=== PATIENT | female | born 1965 ===

== ENCOUNTER 2019-12-06 14:21 | Outpatient (REF) | payer MEDICAID, SELFPAY ==
--- NOTE | 2019-12-06 14:41 | XR_ITS ---
EXAMINATION: XR HIP, LEFT CLINICAL INFORMATION: Left hip pain. COMPARISON: None. TECHNIQUE: 2 views of the left hip. FINDINGS: Mild left hip arthritis, with borderline central joint space narrowing, superior acetabular spurring. No fracture or dislocation. No acute findings in the visualized pelvis. IMPRESSION: Mild left hip arthritis.
== END 2019-12-06 14:22 | disposition home or self-care (01) ==
LOC: HO.XRAY 14:21
PROVIDERS: PCP Pediatrics; Visit Provider Emergency Medicine
DX: M25.552 Pain in left hip (principal)
CPT/HCPCS: 73502

== ENCOUNTER 2020-03-06 14:40 | Outpatient (REF) | payer MEDICAID, SELFPAY ==
--- NOTE | 2020-03-06 14:44 | MM_ITS ---
EXAMINATION: BONE DENSITOMETRY CLINICAL INDICATION: Menopause. COMPARISON: Baseline BD dated 07/15/2016. TECHNIQUE: Using a [employer] DXA System (software version: 13.1) manufactured by [employer], dual-energy x-ray absorptiometry was performed of the lumbar spine and left hip. The images are of good technical quality. Summary results are attached. FINDINGS: AP SPINE L1-L4: Current: BMD 1.177 g/cm2, Z-score 0.0, T-score 0.0, normal, 2.6% increase from baseline (<5% change is not significant). Baseline: BMD 1.147 g/cm2. LEFT FEMUR, NECK: Current: BMD 0.971 g/cm2, Z-score 0.0, T-score -0.5, normal. Baseline: BMD 1.004 g/cm2. LEFT FEMUR, TOTAL: Current: BMD 1.107 g/cm2, Z-score 0.9, T-score 0.8, normal, 2.4% decrease from baseline (<5% change is not significant). Baseline: BMD 1.134 g/cm2. IDENTIFIED RISK FACTORS: Early menopause, secondary osteoporosis, hysterectomy. HISTORY OF FRACTURE: None listed. MEDICATIONS: None listed. MM/XR DEXA axial skeleton IMPRESSION: 1. DIAGNOSIS: Normal bone density based on the lowest T-score value of -0.5 in the femoral neck applying World Health Organization criteria. 2. 10-YEAR FRACTURE RISK PREDICTION, FRAX: Major osteoporotic fracture (clinical spine, forearm, hip or shoulder) 2.6%. Hip fracture 0.1%. 3. Treatment Recommendations: NOF guidelines recommend consideration for treatment in postmenopausal women and men age 50 and older presenting with the following: -A hip or vertebral (clinical or morphometric) fracture. -T-score less than or equal to -2.5 at the femoral neck or spine after appropriate evaluation to exclude secondary causes. -Low bone mass at the hip or spine and a 10-year fracture probability by FRAX of greater than or equal to 3% for hip fracture or greater than or equal to 20% for major osteoporotic fracture based on the [place] adapted WHO algorithm. 4. Other Recommendations: All treatment decisions require clinical judgment and consideration of individual patient factors, including patient preferences, comorbidities, previous drug use, risk factors not captured in the FRAX model (e.g. frailty, falls, vitamin D deficiency, increased bone turnover, interval significant decline in bone density) and possible under or overestimation of fracture risk by FRAX. FUTURE SCAN RECOMMENDATION: People with diagnosed cases of osteoporosis or at high risk for fracture should have regular bone mineral density tests. For patients eligible for Medicare, routine testing is allowed once every 2 years. The testing frequency can be increased to one year for patients who have rapidly progressing disease, those who are receiving or discontinuing medical therapy to restore bone mass, or have additional risk factors.
--- NOTE | 2020-03-06 14:45 | MM_ITS ---
EXAMINATION: MM SCREENING DIGITAL BREAST TOMOSYNTHESIS, BILATERAL CLINICAL INFORMATION: Screening. Asymptomatic. The lifetime risk of breast cancer based on the Tyrer-Cuzick Model is 6%. COMPARISON: Mammography: 07/12/2018, 06/30/2017, 01/18/2016 TECHNIQUE: Digital breast tomosynthesis is performed in both the craniocaudal and mediolateral oblique views along with computer-aided detection (CAD). Synthesized 2D images are generated from the tomosynthesis. FINDINGS: The breasts are almost entirely fatty (ACR BI-RADS breast composition Category a). There are no significant masses, abnormal calcifications, or other abnormalities. There are fine calcifications posterior outer right breast on CC view, related to vascular calcification on tomography. The axilla and skin contours are unremarkable. MM/MM tomosynthesis screening BI IMPRESSION: No mammographic evidence of malignancy. ASSESSMENT: BI-RADS 2: Benign RECOMMENDATION: Routine annual mammography screening. This patient's information was entered into a reminder system with a target due date for their next mammogram.
== END 2020-03-06 14:41 | disposition home or self-care (01) ==
LOC: HO.MAMMO 14:40
PROVIDERS: PCP Pediatrics; Visit Provider Pediatrics
DX: Z13.820 Encounter for screening for osteoporosis (principal); N95.1 Menopausal and female climacteric states; N95.0 Postmenopausal bleeding; Z90.710 Acquired absence of both cervix and uterus; Z12.31 Encounter for screening mammogram for malignant neoplasm of breast
CPT/HCPCS: 77063; 77067; 77080

== ENCOUNTER 2020-08-28 14:47 | Emergency (ER) | payer MEDICAID, SELFPAY ==
--- NOTE | ~2020-08-28 | US_ITS ---
EXAMINATION: US VENOUS WITH DOPPLER LOWER EXTREMITY, BILATERAL CLINICAL INFORMATION: Bilateral lower extremity pain with intermittent swelling. COMPARISON: None TECHNIQUE: Ultrasound of the deep veins is performed from the hip to the calf with compression sonography and color and pulse Doppler assessment. Spectral analysis with color-flow imaging is performed. FINDINGS: RIGHT: There is normal venous compression and respiratory variation and augmented flow. The visualized common femoral vein, superficial femoral vein, profunda femoral vein, popliteal vein, and the trifurcation region shows no evidence of deep venous thrombosis. There is no significant popliteal fossa cyst. LEFT: There is normal venous compression and respiratory variation and augmented flow. The visualized common femoral vein, superficial femoral vein, profunda femoral vein, popliteal vein, and the trifurcation region shows no evidence of deep venous thrombosis. There is no significant popliteal fossa cyst. If the patient's symptoms persist, follow up ultrasound in 5 days 7 days might be of value to exclude proximal propagation from a non-visualized calf vein. US/US venous duplex LE BI IMPRESSION: No DVT demonstrated in the right and left lower extremity.
[2020-08-28 15:50] VITALS: BP 129/85; PULSE 92; RESP 18; TEMP 36.8; O2SAT 97; BMI 31.4
[2020-08-28 18:04] VITALS: BP 144/83; PULSE 74; RESP 16; O2SAT 97
--- NOTE | 2020-08-28 18:22 | ED.LOWEXIN ---
HPI - Extremity Injury (Lower) General Chief Complaint: Extremity Injury, Lower Stated Complaint: terrible leg pains Time Seen by Provider: 08/28/20 19:38 Source: patient Mode of arrival: ambulatory Limitations: language barrier History of Present Illness HPI Narrative: 51-year-old female with past medical history diabetes, fibromyalgia, and hypertension presents with several months of bilateral lower extremity pain. States the pain is 10/10 and that she does have some intermittent swelling. She states the pain does not change went occurs at rest or on ambulation. She does not report falls, trauma or injury. MD complaint: other Onset (ago): month(s) Severity: severe Relieving factors: nothing Exacerbating factors: weight bearing, movement and palpation Other symptoms: none Related Data Allergies Allergy/AdvReac Type Severity Reaction Status Date / Time oxycodone [From PERCOCET] AdvReac Mild ANXIETY Verified 08/28/20 15:50 percocet AdvReac Mild anxiety Uncoded 08/28/20 15:50 Review of Systems Review of Systems: Constitutional: No Fever, No Chills ENT/Mouth: No Ear Pain, No Hoarseness, No sore throat Eyes: No Eye Pain, No Swelling, No Redness, No Foreign Body Cardiovascular: No Chest Pain, No SOB Respiratory: No Cough, No Dyspnea Gastrointestinal: No Nausea, No Vomiting, No Diarrhea, No abdominal Pain Genitourinary: No Dysuria, No Hematuria Musculoskeletal: positive Bilateral lower extremity pain, No Myalgias, No Joint Swelling Skin: No Skin lacerations, No rash Neuro: No Weakness, No Numbness, No Paresthesias, No Loss of Consciousness, No Dizziness, No Headache Psych: No Anxiety/Panic, No Depression Heme/Lymph: no easy bruising, no Lymphadenopathy Endocrine: No Polyuria, No Polydipsia Yes all other systems are reviewed and are negative [facility] Past Medical History Attestation statement: The following information was validated with the patient. Source: old records reviewed Medical History (Updated 08/28/20 @ 20:41 by Rachel Gallardo NP) Diabetes Fibromyalgia HTN (hypertension) Social History Social History Advance Directives: No Advance Directives Information Provided: No Patient : No Physical Exam Vital Signs: Vital Signs: Last Vital Signs Temp 98.2 F 08/28/20 15:50 Pulse 74 08/28/20 18:04 Resp 16 08/28/20 18:04 BP 144/83 H 08/28/20 18:04 Pulse Ox 97 08/28/20 18:04 Body Mass Index 31.4 Appearance: Alert. Oriented X3. No acute distress. Eyes: Pupils equal, round and reactive to light. ENT: Pharynx normal. Neck: Normal inspection. Neck supple. CVS: Normal heart rate and rhythm. Pulses normal. Respiratory: No respiratory distress. Breath sounds normal. Abdomen: Soft and nontender. Skin: Skin warm and dry. Normal skin color. Normal skin turgor. Extremities: No lower extremity edema. I do not appreciate any physical or palpable abnormalities to bilateral lower extremities. Neuro: No motor deficit. No sensory deficit. Course Course Course Narrative: 55-year-old female presents with bilateral lower extremity pain with intermittent swelling. At this time her legs are not swollen, I do not see any abnormalities, no bruising or wounds noted. Will order bilateral venous duplex. Duplex is negative. Plan of care is for patient to follow-up with primary care physician as she has had this pain for several months. Patient verbalized understanding of and agrees to plan of care discharge home. educational sign language interpreter utilized for all correspondence. Will translate utilized for discharge instructions. MDM - Extremity Injury (Lower) MDM Narrative Medical decision making narrative: DVT Medical Records Attestation: I reviewed the patient's medical records. Lab Data Attestation: I reviewed the patient's lab results. Labs: Lab Results 08/28/20 Range/Units 18:23 POC Glucose 227 H (60-115) mg/dL Imaging Data venous duplex: Attestation: I personally reviewed and interpreted this imaging study as follows: Radiologist's impression: EXAMINATION: US VENOUS WITH DOPPLER LOWER EXTREMITY, BILATERAL CLINICAL INFORMATION: Bilateral lower extremity pain with intermittent swelling. COMPARISON: None TECHNIQUE: Ultrasound of the deep veins is performed from the hip to the calf with compression sonography and color and pulse Doppler assessment. Spectral analysis with color-flow imaging is performed. FINDINGS: RIGHT: There is normal venous compression and respiratory variation and augmented flow. The visualized common femoral vein, superficial femoral vein, profunda femoral vein, popliteal vein, and the trifurcation region shows no evidence of deep venous thrombosis. There is no significant popliteal fossa cyst. LEFT: There is normal venous compression and respiratory variation and augmented flow. The visualized common femoral vein, superficial femoral vein, profunda femoral vein, popliteal vein, and the trifurcation region shows no evidence of deep venous thrombosis. There is no significant popliteal fossa cyst. If the patient's symptoms persist, follow up ultrasound in 5 days 7 days might be of value to exclude proximal propagation from a non-visualized calf vein. US/US venous duplex LE BI IMPRESSION: No DVT demonstrated in the right and left lower extremity. Discharge Plan Discharge Clinical Impression: Acute leg pain Qualifiers: Laterality: unspecified laterality Qualified Code(s): M79.606 - Pain in leg, unspecified Patient Disposition: Home, Self-Care Instructions: Arthralgia (ED), Leg Pain (ED) Additional Instructions: fue evaluado por dolor bilateral en las extremidades inferiores. El d?plex venoso es negativo para la formaci?n de co?gulos de pema en ambas piernas. Marleen un seguimiento con guardado m?dico de atenci?n primaria para realizar m?s estudios. Lawrence por elegir arianna departamento de emergencias para guardado evaluaci?n. Marleen un seguimiento con guardado m?dico de atenci?n primaria seg?n sea necesario. Regrese al departamento de emergencias por cualquier s?ntoma nuevo, preocupante o que empeore. you were evaluated for bilateral lower extremity pain. Venous duplex is negative for blood clots to both legs. Please follow-up with primary care physician for further workup. Thank you for choosing this emergency department for evaluation. Please follow-up with primary care physician as needed. Return to the emergency department for any new, concerning, or worsening symptoms. Interventions: ED Discharge Assessment Last Done: 08/28/20 21:39 Discharge Date/Time: 08/28/20 20:42
[2020-08-28 18:27] LABS: Glucose, Whole Blood 227 mg/dL (60-115)
== END 2020-08-28 20:42 | disposition home or self-care (01) ==
PROVIDERS: Emergency Provider Emergency Medicine; PCP Pediatrics
DX: M79.605 Pain in left leg (principal); M79.604 Pain in right leg; E11.9 Type 2 diabetes mellitus without complications; I10 Essential (primary) hypertension; M79.7 Fibromyalgia
CPT/HCPCS: 82947; 93970; 99284

== ENCOUNTER 2021-10-24 13:58 | Outpatient (REF) | payer MEDICAID, SELFPAY ==
--- NOTE | ~2021-10-24 | US_ITS ---
EXAMINATION: US ABDOMEN COMPLETE CLINICAL INFORMATION: Fatty liver. COMPARISON: CT Abdomen pelvis 11/14/2017. Ultrasound abdomen 03/09/2014. TECHNIQUE: Real-time imaging of the abdominal viscera. FINDINGS: PANCREAS: Pancreas is normal in size and contour. No pancreatic ductal distention or retroperitoneal effusion. ABDOMINAL AORTA: The proximal, mid, and distal segments are normal in caliber. INFERIOR VENA CAVA: Visualized portions are normal. LIVER: Liver is normal in size and smooth in contour. There is mild increased hepatic parenchymal echogenicity consistent with hepatic steatosis. No focal hepatic parenchymal lesion. No intrahepatic biliary ductal dilatation. GALLBLADDER: Surgically absent. COMMON BILE DUCT: Normal in caliber measuring 0.5 cm in diameter. RIGHT KIDNEY: Normal. No hydronephrosis. No renal calculi or focal parenchymal lesions. The kidney measures 12.4 cm in maximum dimension. There is incidental lobation contours similar to prior exams. LEFT KIDNEY: Normal. No hydronephrosis. No renal calculi or focal parenchymal lesions. The kidney measures 12.7 cm in maximum dimension. There is incidental lobation contours are similar to prior exams. SPLEEN: Normal. The spleen measures 10.7 cm in maximum dimension. FREE FLUID: None. US/US abdomen complete IMPRESSION: -Hepatic steatosis. No focal parenchymal lesion. -Spleen normal in size. No ascites. -Prior cholecystectomy.
== END 2021-10-24 13:59 | disposition home or self-care (01) ==
LOC: HO.HMGCX 13:58
PROVIDERS: PCP Family Medicine; Visit Provider Family Medicine
DX: K76.0 Fatty (change of) liver, not elsewhere classified (principal)
CPT/HCPCS: 76700

== ENCOUNTER 2022-03-06 17:22 | Emergency (ER) | payer MEDICAID, SELFPAY ==
--- NOTE | ~2022-03-06 | XR_ITS ---
EXAMINATION: XR CHEST CLINICAL INFORMATION: Chest pain and cough. COMPARISON: Chest radiograph 03/29/2019. TECHNIQUE: Frontal view of the chest was obtained. FINDINGS: Normal appearance of the cardiomediastinal silhouette. No focal airspace opacity, pleural effusion or pneumothorax. Mild interstitial prominence, not significantly changed since 2019. No acute osseous abnormalities. The visualized upper abdomen is within normal limits. XR/XR chest 1V IMPRESSION: No acute cardiopulmonary findings.
[2022-03-06 17:30] VITALS: BP 136/70; PULSE 93; O2SAT 98
--- NOTE | 2022-03-06 17:31 | ECG_ITS ---
Test Reason : CHEST DISCOMFORT Blood Pressure : / mmHG Vent. Rate : 074 BPM Atrial Rate : 074 BPM P-R Int : 140 ms QRS Dur : 082 ms QT Int : 416 ms P-R-T Axes : -01 004 010 degrees QTc Int : 461 ms Normal sinus rhythm Normal ECG When compared with ECG of 13-SEP-2017 19:16, Premature atrial complexes are no longer Present Referred By: Azul Irving Electronically Signed By:ZACH SAMPSON
[2022-03-06 17:33] VITALS: BP 142/80; PULSE 89; RESP 16; TEMP 36.9; O2SAT 97; BMI 28.3
--- NOTE | 2022-03-06 17:34 | ED.GENADULT ---
HPI - General Adult General Chief complaint: General Medical Stated complaint: SOB Time Seen by Provider: 03/06/22 17:26 Source: patient Mode of arrival: ambulatory Limitations: no limitations History of Present Illness HPI narrative: Patient comes to the emergency room complaining of shortness of breath, diarrhea, epigastric pain for 3 days. Patient states that she came to the emergency today because of the shortness of breath. Patient states that she has been coughing, having mild substernal pain with coughing. Patient has not taking any [id number] medication for diarrhea. Patient also feeling nauseous, no vomiting. Denies fever chills, no UTI symptoms. Related Data Previous Rx's Medication Instructions Recorded loperamide 2 mg capsule 2 mg PO Q4H PRN loose stool #10 03/06/22 caps Allergies Allergy/AdvReac Type Severity Reaction Status Date / Time oxycodone [From PERCOCET] AdvReac Mild ANXIETY Verified 08/28/20 15:50 percocet AdvReac Mild anxiety Uncoded 08/28/20 15:50 Review of Systems Review of Systems: Constitutional : No Weight loss, No Fever, No Chills, No Night Sweats, No Fatigue, No Malaise ENT/Mouth : No Hearing loss, No Ear Pain, No Nasal Congestion, No Sinus Pain, No Hoarseness, No sore throat, No Rhinorrhea, No Swallowing Difficulty Eyes: No Eye Pain, No Swelling, No Redness, No Foreign Body, No Discharge, No Vision Changes Cardiovascular : Complaining of substernal Chest Pain with coughing, No SOB, No Dyspnea on Exertion, No Orthopnea, No Edema, No Palpitations Respiratory : No Cough, No Sputum, No Wheezing, No Smoke Exposure, No Dyspnea Gastrointestinal : Complaining of Nausea, No Vomiting, complaining of Diarrhea, No Constipation, complaining of constant epigastric pain, No Hematochezia, No Melena Genitourinary : no irregular bleeding, No Dysuria, No Urinary Frequency, No Hematuria, No Urinary Incontinence, No Urgency, No Flank Pain, No Urinary Flow Changes, No Hesitancy Musculoskeletal : No joint pain, No Myalgias, No Joint Swelling Skin : No Skin Lesions, No rash Neuro : No Weakness, No Numbness, No Paresthesias, No Loss of Consciousness, No Dizziness, No Headache Psych : No Anxiety/Panic, No Depression, No SI/HI/AH/VH, No Social Issues, Heme/Lymph: No Bruising, No Bleeding,No Lymphadenopathy Endocrine : No Polyuria, No Polydipsia, No Temperature Intolerance [facility] Past Medical History Medical History Diabetes Fibromyalgia HTN (hypertension) Non Hodgkin's lymphoma Social History Social History Advance Directives: No Advance Directives Information Provided: No Physical Exam ED Vital Signs: Vital Signs - 24 hr 03/06/22 17:33 03/06/22 18:00 Temperature 98.4 F 98.7 F Pulse Rate 89 70 Respiratory Rate 16 16 Blood Pressure 142/80 H 135/77 Pulse Oximetry 97 98 Oxygen Delivery Method Room Air Room Air BMI result Body Mass Index 28.3 Const Other: Appearance: Alert. Oriented X3. No acute distress. Well-appearing Eyes: Pupils equal, round and reactive to light. ENT: Pharynx normal. Neck: Normal inspection. Neck supple. No lymph nodes noted. No crepitus CVS: Normal heart rate and rhythm. Pulses normal. Normal S1 and S2 Respiratory: No respiratory distress. Breath sounds normal. No Wheezing. No rales Abdomen: Soft, mild discomfort to palpation over the epigastrium. No rigidity. No distention. Skin: Skin warm and dry. Normal skin color. Normal skin turgor. Extremities: No lower extremity edema. No Lacerations. No Rash Neuro: Oriented X 3. No motor deficit. No sensory deficit. Moving all extremities. No slurred speech. CN 2 through 12 grossly intact Psych: calm, cooperative, normal affect Course Course Course Narrative: Patient complaining of shortness of breath, diarrhea, chest pain. Likely viral syndrome. However, patient has history of non-Hodgkin's lymphoma. D-dimer pending. Time, patient's vitals are normal, oxygen saturation 98% on room air, normal respiratory rate, heart rate in the 80s on physical exam. Medications Administered Discontinued Medications Generic Name Dose Route Start Last Admin Trade Name Freq PRN Reason Stop Dose Admin Sodium Chloride 1,000 mls @ 999 mls/hr 03/06/22 17:31 03/06/22 19:02 Ns IVCONT 03/06/22 18:31 999 mls/hr .Q1H1M ONE Administration Medical Decision Making Medical Decision Making MDM Narrative: I discussed the labs and imaging with the patient, no acute findings. D-dimer is negative. Patient does not have lower extremity swelling or pain. Troponin negative, EKG interpreted by me shows normal sinus rhythm, heart rate 74, no ST segment depression or elevation, nonspecific T-wave inversion in lead 3, QTC 461 Chest x-ray interpreted by me: No infiltrates, no pneumothorax I reviewed the radiology report: FINDINGS: Normal appearance of the cardiomediastinal silhouette. No focal airspace opacity, pleural effusion or pneumothorax. Mild interstitial prominence, not significantly changed since 2019. No acute osseous abnormalities. The visualized upper abdomen is within normal limits. XR/XR chest 1V IMPRESSION: No acute cardiopulmonary findings. Patient likely having a viral syndrome. Lab Data MDM Lab Attestation statement: I reviewed the patient's lab results. 03/06/22 18:06 03/06/22 18:06 Labs: Lab Results 03/06/22 03/06/22 03/06/22 Range/Units 18:06 18:06 18:06 WBC 6.3 (4.8-10.8) X10*3/uL RBC 6.17 H (4.20-5.50) X10*6/uL Hgb 14.2 (12.0-16.0) g/dl Hct 42.5 (37.0-47.0) % MCV 68.9 L (80.0-98.0) fL MCH 23.0 L (27.0-33.0) pg MCHC 33.4 (31.0-35.0) g/dl RDW 13.5 (11.0-16.0) % Plt Count 168 (160-400) X10*3/uL MPV 11.5 (9.4-12.3) fL Immature Gran % (Auto) 0.2 (0.0-0.4) % Neut % (Auto) 48.6 (45-73) % Lymph % (Auto) 40.6 H (20-40) % [place] % (Auto) 6.1 (2-11) % Eos % (Auto) 3.7 (0-4) % Baso % (Auto) 0.8 (0-2) % Lymph # (Auto) 2.5 (1.2-4.9) X10*3/uL [place] # (Auto) 0.4 (0.1-1.2) X10*3/uL Eos # (Auto) 0.2 (0.0-0.4) X10*3/uL Baso # (Auto) 0.1 (0.0-0.2) X10*3/uL Abs Immat Gran (auto) 0.01 (0.00-0.03) X10*3/uL Absolute Neuts (auto) 3.1 (2.0-8.3) x10*3/uL Absolute Nucleated RBC 0.000 (0.0-0.012) X10*3/uL Nucleated RBC % (auto) 0.0 (0.0-0.2) /100WBC PT (10.0-13.1) SEC INR (0.9-1.1) D-Dimer High Sensitivty NG/ML Sodium 135 (135-145) mmol/L Potassium 3.7 (3.3-5.1) mmol/L Chloride 103 (96-108) mmol/L Carbon Dioxide 19 L (22-29) mmol/L Anion Gap 17 (12-20) BUN 13 (9-16) mg/dL Creatinine 0.85 (0.5-1.4) mg/dL Estim Creat Clear Calc 73.2 Estimated GFR > 60 Random Glucose 278 H (60-115) mg/dL Calcium 9.6 (8.4-10.2) mg/dL Total Bilirubin 0.9 (0.0-1.0) mg/dL Direct Bilirubin 0.2 (0.0-0.5) mg/dL AST 58 H (5-31) U/L ALT 62 H (0-31) U/L Alkaline Phosphatase 142 H (39-117) U/L Troponin I High Sens (<3.5-17.0) ng/L Total Protein 7.6 (6.5-8.0) g/dL Albumin 4.0 (3.5-5.0) g/dL Lipase 52 (8-78) U/L COVID-19 (JENNY) (Negative) COVID-19 Clin Com Influenza Type A (TANJA) Negative (Negative) Influenza Type B (TANJA) Negative (Negative) Influenza A & B Note See Note 03/06/22 03/06/22 03/06/22 Range/Units 18:06 18:06 18:06 WBC (4.8-10.8) X10*3/uL RBC (4.20-5.50) X10*6/uL Hgb (12.0-16.0) g/dl Hct (37.0-47.0) % MCV (80.0-98.0) fL MCH (27.0-33.0) pg MCHC (31.0-35.0) g/dl RDW (11.0-16.0) % Plt Count (160-400) X10*3/uL MPV (9.4-12.3) fL Immature Gran % (Auto) (0.0-0.4) % Neut % (Auto) (45-73) % Lymph % (Auto) (20-40) % [place] % (Auto) (2-11) % Eos % (Auto) (0-4) % Baso % (Auto) (0-2) % Lymph # (Auto) (1.2-4.9) X10*3/uL [place] # (Auto) (0.1-1.2) X10*3/uL Eos # (Auto) (0.0-0.4) X10*3/uL Baso # (Auto) (0.0-0.2) X10*3/uL Abs Immat Gran (auto) (0.00-0.03) X10*3/uL Absolute Neuts (auto) (2.0-8.3) x10*3/uL Absolute Nucleated RBC (0.0-0.012) X10*3/uL Nucleated RBC % (auto) (0.0-0.2) /100WBC PT 13.0 (10.0-13.1) SEC INR 1.1 (0.9-1.1) D-Dimer High Sensitivty 152 NG/ML Sodium (135-145) mmol/L Potassium (3.3-5.1) mmol/L Chloride (96-108) mmol/L Carbon Dioxide (22-29) mmol/L Anion Gap (12-20) BUN (9-16) mg/dL Creatinine (0.5-1.4) mg/dL Estim Creat Clear Calc Estimated GFR Random Glucose (60-115) mg/dL Calcium (8.4-10.2) mg/dL Total Bilirubin (0.0-1.0) mg/dL Direct Bilirubin (0.0-0.5) mg/dL AST (5-31) U/L ALT (0-31) U/L Alkaline Phosphatase (39-117) U/L Troponin I High Sens < 3.5 (<3.5-17.0) ng/L Total Protein (6.5-8.0) g/dL Albumin (3.5-5.0) g/dL Lipase (8-78) U/L COVID-19 (JENNY) Negative (Negative) COVID-19 Clin Com See Note Influenza Type A (TANJA) (Negative) Influenza Type B (TANJA) (Negative) Influenza A & B Note Chronic Conditions Patient?s care impacted by: Other (Anxiety) Patient states that she has been feeling very anxious for the last few days. Unclear reason. Patient requesting 1 dose of Ativan prior to discharge Discharge Plan Discharge Clinical Impression: Acute viral syndrome, Diarrhea Patient Disposition: Home, Self-Care Instructions: Viral Syndrome (ED) Additional Instructions: Please follow-up with your primary care physician tomorrow. If you have any worsening or new symptoms, please return to the emergency room or call 911 Prescriptions: New loperamide 2 mg capsule 2 mg PO Q4H PRN (Reason: loose stool) Qty: 10 0RF Rx Instructions: administer after each loose stool until symptoms controlled; do not exceed 8 mg per 24 hrs
[2022-03-06 18:00] VITALS: BP 135/77; PULSE 70; RESP 16; TEMP 37.1; O2SAT 98
[2022-03-06 18:10] LABS: MANUAL DIFF FLAG NO
[2022-03-06 18:14] LABS: Basophils Absolute Auto 0.1 X10*3/uL (0.0-0.2); Basophils Percent Auto 0.8 % (0-2); Eosinophils Absolute Auto 0.2 X10*3/uL (0.0-0.4); Eosinophils Percent Auto 3.7 % (0-4); Hematocrit 42.5 % (37.0-47.0); Hemoglobin 14.2 g/dl (12.0-16.0); Imm Gran Abs Auto 0.01 X10*3/uL (0.00-0.03); Imm Gran Pct Auto 0.2 % (0.0-0.4); Lymphocytes Absolute Auto 2.5 X10*3/uL (1.2-4.9); Lymphocytes Percent Auto 40.6 % (20-40); Mean Corpuscular HGB Conc 33.4 g/dl (31.0-35.0); Mean Corpuscular Volume 68.9 fL (80.0-98.0); Mean Platelet Volume 11.5 fL (9.4-12.3); Monocytes Absolute Auto 0.4 X10*3/uL (0.1-1.2); Monocytes Percent Auto 6.1 % (2-11); Neutrophils Absolute Auto 3.1 x10*3/uL (2.0-8.3); Neutrophils Percent Auto 48.6 % (45-73); Platelet Count 168 X10*3/uL (160-400); Red Blood Count 6.17 X10*6/uL (4.20-5.50); Red Cell Distribution Width 13.5 % (11.0-16.0); White Blood Count 6.3 X10*3/uL (4.8-10.8)
[2022-03-06 18:19] LABS: INTERNATIONAL NORM RATIO 1.1 (0.9-1.1)
[2022-03-06 18:21] LABS: D Dimer High Sensitivity 152 NG/ML
[2022-03-06 18:25] LABS: COVID-19 Test Negative (Negative); IDNOW Serial# 16C4AD1C
[2022-03-06 18:28] LABS: IDNOW Serial# BCCEAD1C; Influenza A Negative (Negative); Influenza B2 Negative (Negative)
[2022-03-06 18:41] LABS: Alanine Aminotransferase 62 U/L (0-31); Alkaline Phosphatase 142 U/L (39-117); Anion Gap 17 (12-20); Aspartate Amino Transferase 58 U/L (5-31); Bilirubin Direct 0.2 mg/dL (0.0-0.5); Bilirubin Total 0.9 mg/dL (0.0-1.0); Blood Urea Nitrogen 13 mg/dL (9-16); Calcium 9.6 mg/dL (8.4-10.2); Carbon Dioxide 19 mmol/L (22-29); Chloride 103 mmol/L (96-108); Creatinine Clr Calc Pharmacy 73.2; Estimated Glomerular Filt Rate > 60; Glucose Random 278 mg/dL (60-115); Lipase 52 U/L (8-78); Potassium 3.7 mmol/L (3.3-5.1); Sodium 135 mmol/L (135-145); Total Protein 7.6 g/dL (6.5-8.0); Troponin-I High Sensitivity < 3.5 ng/L (<3.5-17.0)
[2022-03-06] MEDS: 0.9 % Sodium Chloride 1,000 ML 999 ML IVCONT (19:02)
[2022-03-06] MEDS: LORazepam 1 MG TABLET PO (19:49)
[2022-03-06] MEDS: Loperamide HCl 2 MG CAPSULE 4 MG PO (19:49)
[2022-03-06 20:28] VITALS: BP 130/76; PULSE 63; RESP 16; TEMP 36.3; O2SAT 98
== END 2022-03-06 20:36 | disposition home or self-care (01) ==
PROVIDERS: Emergency Provider Emergency Medicine; PCP Family Medicine
DX: B34.9 Viral infection, unspecified (principal); R06.02 Shortness of breath; R10.13 Epigastric pain; R19.7 Diarrhea, unspecified; Z79.899 Other long term (current) drug therapy; Z20.822 Contact with and (suspected) exposure to COVID-19
CPT/HCPCS: 71045; 80048; 80076; 83690; 84484; 85025; 85379; 85610; 87502; 87635; 93005; 99283; 99284

== ENCOUNTER 2022-03-11 12:53 | Outpatient (REF) | payer MEDICAID, SELFPAY ==
--- NOTE | ~2022-03-11 | MM_ITS ---
EXAMINATION: BONE DENSITOMETRY CLINICAL INDICATION: Post menopausal. COMPARISON: Previous BD dated 03/06/2020 and baseline BD dated 07/15/2016. TECHNIQUE: Using a Clarity DXA System (software version: 13.1) manufactured by [employer], dual-energy x-ray absorptiometry was performed of the lumbar spine and left hip. The images are of good technical quality. Summary results are attached. FINDINGS: AP SPINE L1-L4: Current: BMD 1.133 g/cm2, Z-score 0.1, T-score -0.4, normal, 3.7% decrease from previous, 1.2% decrease from baseline (<5% change is not significant). Prior: BMD 1.177 g/cm2. Baseline: BMD 1.147 g/cm2. LEFT FEMUR, NECK: Current: BMD 0.866 g/cm2, Z-score -0.4, T-score -1.2, osteopenia. Prior: BMD 0.971 g/cm2. Baseline: BMD 1.004 g/cm2. LEFT FEMUR, TOTAL: Current: BMD 1.017 g/cm2, Z-score 0.5, T-score 0.1, normal, 8.1% decrease from previous, 10.3% decrease from baseline (<5% change is not significant). Prior: BMD 1.107 g/cm2. Baseline: BMD 1.134 g/cm2. IDENTIFIED RISK FACTORS: Secondary osteoporosis (early menopause). Hysterectomy. HISTORY OF FRACTURE: None listed. MEDICATIONS: None listed. MM/XR DEXA axial skeleton IMPRESSION: 1. DIAGNOSIS: Osteopenia based on the lowest T-score value of -1.2 in the femoral neck applying World Health Organization criteria. 2. 10-YEAR FRACTURE RISK PREDICTION, FRAX: Major osteoporotic fracture (clinical spine, forearm, hip or shoulder) 3.4%. Hip fracture 0.2%. 3. Treatment Recommendations: NOF guidelines recommend consideration for treatment in postmenopausal women and men age 50 and older presenting with the following: -A hip or vertebral (clinical or morphometric) fracture. -T-score less than or equal to -2.5 at the femoral neck or spine after appropriate evaluation to exclude secondary causes. -Low bone mass at the hip or spine and a 10-year fracture probability by FRAX of greater than or equal to 3% for hip fracture or greater than or equal to 20% for major osteoporotic fracture based on the [place] adapted WHO algorithm. 4. Other Recommendations: All treatment decisions require clinical judgment and consideration of individual patient factors, including patient preferences, comorbidities, previous drug use, risk factors not captured in the FRAX model (e.g. frailty, falls, vitamin D deficiency, increased bone turnover, interval significant decline in bone density) and possible under or overestimation of fracture risk by FRAX. Additional medical evaluation for secondary cause of low bone mineral density may be appropriate. FUTURE SCAN RECOMMENDATION: People with diagnosed cases of osteoporosis or at high risk for fracture should have regular bone mineral density tests. For patients eligible for Medicare, routine testing is allowed once every 2 years. The testing frequency can be increased to one year for patients who have rapidly progressing disease, those who are receiving or discontinuing medical therapy to restore bone mass, or have additional risk factors.
--- NOTE | ~2022-03-11 | MM_ITS ---
EXAMINATION: MM SCREENING DIGITAL BREAST TOMOSYNTHESIS, BILATERAL CLINICAL INFORMATION: Screening. Asymptomatic. The lifetime risk of breast cancer based on the Tyrer-Cuzick Model is 4%. COMPARISON: Mammography: 03/06/2020, 07/12/2018, 07/19/2017 TECHNIQUE: Digital breast tomosynthesis is performed in both the craniocaudal and mediolateral oblique views along with computer-aided detection (CAD). Synthesized 2D images are generated from the tomosynthesis. FINDINGS: The breasts are almost entirely fatty (ACR BI-RADS breast composition Category a). Background stromal and fibroglandular densities are stable. No developing density or architectural abnormality. There are no significant masses, abnormal calcifications, or other abnormalities. The axilla and skin contours are unremarkable. MM/MM tomosynthesis screening BI IMPRESSION: No mammographic evidence of malignancy. ASSESSMENT: BI-RADS 1: Negative RECOMMENDATION: Routine annual mammography screening. This patient's information was entered into a reminder system with a target due date for their next mammogram.
== END 2022-03-11 12:54 | disposition home or self-care (01) ==
LOC: HO.MAMMO 12:53
PROVIDERS: PCP Pediatrics; Visit Provider Pediatrics
DX: Z12.31 Encounter for screening mammogram for malignant neoplasm of breast (principal); Z13.820 Encounter for screening for osteoporosis; Z78.0 Asymptomatic menopausal state
CPT/HCPCS: 77063; 77067; 77080

== ENCOUNTER 2022-08-27 16:22 | Emergency (ER) | payer MEDICAID, SELFPAY ==
--- NOTE | ~2022-08-27 | XR_ITS ---
EXAMINATION: XR CHEST CLINICAL INFORMATION: Chest pain, shortness of breath. COMPARISON: 03/06/2022 chest radiograph. TECHNIQUE: 2 views of the chest were obtained. FINDINGS: No significant abnormality is noted involving the heart, lungs, mediastinum, bony thorax or soft tissues. XR/XR chest 2V IMPRESSION: No acute cardiopulmonary process.
[2022-08-27 16:36] VITALS: BP 151/85; PULSE 79; RESP 18; TEMP 36.8; O2SAT 96; BMI 28.3
--- NOTE | 2022-08-27 16:36 | ED_ITS ---
HPI - Chest Pain General Chief Complaint: Chest Pain Stated Complaint: Chest pain/SOB/sent by Doc Time Seen by Provider: 08/27/22 18:14 Source: patient and family Mode of arrival: ambulatory History of Present Illness HPI narrative: 57-year-old female who reports intermittent chest tightness over the past 3 months not associated with fever, dizziness, headaches, shortness of breath, new cough for sore throat and denies any radiation. In addition, patient reports that this has happened several other times to her and that she does suffer from anxiety at baseline. Related Data Previous Rx's Medication Instructions Recorded loperamide 2 mg capsule 2 mg PO Q4H PRN loose stool #10 03/06/22 caps Allergies Allergy/AdvReac Type Severity Reaction Status Date / Time oxycodone [From PERCOCET] AdvReac Mild ANXIETY Verified 08/27/22 16:40 percocet AdvReac Mild anxiety Uncoded 08/28/20 15:50 Review of Systems Review of Systems: Pertinent positives and negatives as stated in HPI. [facility] Past Medical History Source: nursing notes reviewed Medical History Diabetes Fibromyalgia HTN (hypertension) Non Hodgkin's lymphoma Social History Social History Smoked in Last 30 Days: No Substance Use Type: Marijuana Advance Directives: No Advance Directives Information Provided: No Physical Exam Vital Signs: Vital Signs: Last Vital Signs Temp 98.6 F 08/27/22 18:30 Pulse 82 08/27/22 18:30 Resp 16 08/27/22 18:30 BP 127/76 08/27/22 18:30 Pulse Ox 97 08/27/22 18:30 O2 Del Method Room Air 08/27/22 18:30 BMI result Body Mass Index 28.3 VITAL SIGNS: Reviewed. GENERAL: Well developed, well nourished, in no acute distress. HEAD: Normocephalic/atraumatic EYES: PERRLA, EOMI EARS: Ext canals without abnormality NOSE: Nares patent bilateral OROPHARYNX: no oral lesions noted, posterior pharynx clear NECK: Supple, no adenopathy LUNGS: Normal breath sounds. No adventitious sounds or accessory muscle use. SpO2<97> CARDIOVASCULAR: Regular rate and rhythm without noted murmurs, no JVD or lower extremity edema. ABDOMEN: Soft, non-tender, non-distended with bowel sounds. MUSCULOSKELETAL: No tenderness, deformities, or effusions noted on gross inspection. EXTREMITIES: No cyanosis, clubbing or edema. SKIN: Inspection of the skin reveals no rashes NEUROLOGIC: Alert and oriented x 4. Strength and sensation to light touch were grossly intact x 4. Course Course Course Narrative: RME: 57-year-old female with past medical history of diabetes, fibromyalgia, HTN, non-Hodgkin's lymphoma in remission x5 yrs, presenting to ED substernal chest pressure & SOB that comes and goes x 3 days. Feels like she cant catch her breath EKG, Labs, CXR ordered Full HPI, ROS and PE to be performed by primary ED provider. Medical Decision Making Medical Decision Making [facility] Narrative: 57-year-old female with history and clinical presentation after review of all investigations there is no evidence to suggest a pneumonia or cardiac ischemia as there is no leukocytosis/left shift/elevated troponin/acute changes of EKG. I did review patient's medical history which does include non Hodgkin's lymphoma although patient does not describe any B symptoms and no findings on chest x-ray to suggest any association with this remote history. I discussed all results with patient at bedside and strongly recommended that she follow-up with her primary care provider for further evaluation and management as well as possible adjustment of her medications. She is otherwise stable for discharge. Differential Diagnosis Please see the discussion above Lab Data Please see the discussion above 08/27/22 17:34 08/27/22 17:29 Labs: Lab Results 08/27/22 08/27/22 08/27/22 Range/Units 17:29 17:29 17:29 WBC (4.8-10.8) X10*3/uL RBC (4.20-5.50) X10*6/uL Hgb (12.0-16.0) g/dl Hct (37.0-47.0) % MCV (80.0-98.0) fL MCH (27.0-33.0) pg MCHC (31.0-35.0) g/dl RDW (11.0-16.0) % Plt Count (160-400) X10*3/uL MPV (9.4-12.3) fL Immature Gran % (Auto) (0.0-0.4) % Neut % (Auto) (45-73) % Lymph % (Auto) (20-40) % [place] % (Auto) (2-11) % Eos % (Auto) (0-4) % Baso % (Auto) (0-2) % Lymph # (Auto) (1.2-4.9) X10*3/uL [place] # (Auto) (0.1-1.2) X10*3/uL Eos # (Auto) (0.0-0.4) X10*3/uL Baso # (Auto) (0.0-0.2) X10*3/uL Abs Immat Gran (auto) (0.00-0.03) X10*3/uL Absolute Neuts (auto) (2.0-8.3) x10*3/uL Absolute Nucleated RBC (0.0-0.012) X10*3/uL Nucleated RBC % (auto) (0.0-0.2) /100WBC PT 12.4 (10.0-13.1) SEC INR 1.1 (0.9-1.1) Sodium 134 L (135-145) mmol/L Potassium 3.8 (3.3-5.1) mmol/L Chloride 100 (96-108) mmol/L Carbon Dioxide 26 (22-29) mmol/L Anion Gap 12 (12-20) BUN 12 (9-16) mg/dL Creatinine 0.83 (0.5-1.4) mg/dL Estim Creat Clear Calc 75.0 Estimated GFR > 60 Random Glucose 229 H (60-115) mg/dL Calcium 10.4 H D (8.4-10.2) mg/dL Magnesium 2.1 (1.6-2.6) mg/dL Total Bilirubin 0.9 (0.0-1.0) mg/dL Direct Bilirubin 0.2 (0.0-0.5) mg/dL AST 50 H (5-31) U/L ALT 63 H (0-31) U/L Alkaline Phosphatase 129 H (39-117) U/L Troponin I High Sens < 2.7 (<3.5-17.0) ng/L B-Natriuretic Peptide (<100) pg/mL Total Protein 8.0 (6.5-8.0) g/dL Albumin 4.2 (3.5-5.0) g/dL COVID-19 (JENNY) (Negative) COVID-19 Clin Com 08/27/22 08/27/22 08/27/22 Range/Units 17:29 17:34 17:34 WBC 7.3 (4.8-10.8) X10*3/uL RBC 6.12 H (4.20-5.50) X10*6/uL Hgb 14.2 (12.0-16.0) g/dl Hct 42.8 (37.0-47.0) % MCV 69.9 L (80.0-98.0) fL MCH 23.2 L (27.0-33.0) pg MCHC 33.2 (31.0-35.0) g/dl RDW 14.6 (11.0-16.0) % Plt Count 191 (160-400) X10*3/uL MPV 11.4 (9.4-12.3) fL Immature Gran % (Auto) 0.3 (0.0-0.4) % Neut % (Auto) 57.0 (45-73) % Lymph % (Auto) 31.2 (20-40) % [place] % (Auto) 7.5 (2-11) % Eos % (Auto) 3.3 (0-4) % Baso % (Auto) 0.7 (0-2) % Lymph # (Auto) 2.3 (1.2-4.9) X10*3/uL [place] # (Auto) 0.6 (0.1-1.2) X10*3/uL Eos # (Auto) 0.2 (0.0-0.4) X10*3/uL Baso # (Auto) 0.1 (0.0-0.2) X10*3/uL Abs Immat Gran (auto) 0.02 (0.00-0.03) X10*3/uL Absolute Neuts (auto) 4.2 (2.0-8.3) x10*3/uL Absolute Nucleated RBC 0.000 (0.0-0.012) X10*3/uL Nucleated RBC % (auto) 0.0 (0.0-0.2) /100WBC PT (10.0-13.1) SEC INR (0.9-1.1) Sodium (135-145) mmol/L Potassium (3.3-5.1) mmol/L Chloride (96-108) mmol/L Carbon Dioxide (22-29) mmol/L Anion Gap (12-20) BUN (9-16) mg/dL Creatinine (0.5-1.4) mg/dL Estim Creat Clear Calc Estimated GFR Random Glucose (60-115) mg/dL Calcium (8.4-10.2) mg/dL Magnesium (1.6-2.6) mg/dL Total Bilirubin (0.0-1.0) mg/dL Direct Bilirubin (0.0-0.5) mg/dL AST (5-31) U/L ALT (0-31) U/L Alkaline Phosphatase (39-117) U/L Troponin I High Sens (<3.5-17.0) ng/L B-Natriuretic Peptide < 10 (<100) pg/mL Total Protein (6.5-8.0) g/dL Albumin (3.5-5.0) g/dL COVID-19 (JENNY) Negative (Negative) COVID-19 Clin Com See Note Independent Interpretation I performed an independent interpretation of an: EKG Interpretation: Normal sinus rhythm, HR-80, no STEMI, CO/QRS/QTC are within normal limits, there are no acute changes when compared to prior from 03/06/2022 Radiology Impression Radiologist Impression: There is no pneumonia otherwise my interpretation is in agreement with radiologist impression. External Record Review External record reviewed: Prior outpatient labs Chronic Conditions Patient?s care impacted by: Diabetes and Hypertension Discharge Plan Discharge Clinical Impression: Atypical chest pain, Anxiety Patient Disposition: Home, Self-Care Instructions: Chest Pain (ED), Anxiety (ED) Additional Instructions: 1. Reanudar todos los medicamentos caseros seg?n lo prescrito. 2. Le recomendamos encarecidamente que lara un seguimiento con guardado proveedor de atenci?n primaria y analice el ajuste de debbie medicamentos para guardado ansiedad. Regrese a la fariha de emergencias si los s?ntomas empeoran. 1. Resume all home medications as prescribed. 2. Strongly recommend that you follow-up with your primary care provider and discuss adjustment of your medications for your anxiety. Return to the ER for any worsening symptoms. Prescriptions: No Action loperamide 2 mg capsule 2 mg PO Q4H PRN (Reason: loose stool) Qty: 10 0RF Rx Instructions: administer after each loose stool until symptoms controlled; do not exceed 8 mg per 24 hrs Referrals: Keyona Chaudhari MD [Primary Care Provider] - Print Language: Greek
--- NOTE | 2022-08-27 16:39 | ECG_ITS ---
Test Reason : chest tightness Blood Pressure : / mmHG Vent. Rate : 080 BPM Atrial Rate : 080 BPM P-R Int : 134 ms QRS Dur : 084 ms QT Int : 402 ms P-R-T Axes : -02 029 004 degrees QTc Int : 463 ms Normal sinus rhythm Normal ECG When compared with ECG of 06-MAR-2022 18:11, No significant change was found Referred By: Jie Naik Electronically Signed By:Go Rose
--- NOTE | 2022-08-27 17:37 | MHC.EDTECH ---
PATIENT LABS DRAWN ,COVID SWAB COLLECTED AND SENT TO LAB .
[2022-08-27 17:45] LABS: MANUAL DIFF FLAG NO
[2022-08-27 17:46] LABS: Basophils Absolute Auto 0.1 X10*3/uL (0.0-0.2); Basophils Percent Auto 0.7 % (0-2); Eosinophils Absolute Auto 0.2 X10*3/uL (0.0-0.4); Eosinophils Percent Auto 3.3 % (0-4); Hematocrit 42.8 % (37.0-47.0); Hemoglobin 14.2 g/dl (12.0-16.0); Imm Gran Abs Auto 0.02 X10*3/uL (0.00-0.03); Imm Gran Pct Auto 0.3 % (0.0-0.4); Lymphocytes Absolute Auto 2.3 X10*3/uL (1.2-4.9); Lymphocytes Percent Auto 31.2 % (20-40); Mean Corpuscular HGB Conc 33.2 g/dl (31.0-35.0); Mean Corpuscular Hemoglobin 23.2 pg (27.0-33.0); Mean Corpuscular Volume 69.9 fL (80.0-98.0); Mean Platelet Volume 11.4 fL (9.4-12.3); Monocytes Absolute Auto 0.6 X10*3/uL (0.1-1.2); Monocytes Percent Auto 7.5 % (2-11); Neutrophils Absolute Auto 4.2 x10*3/uL (2.0-8.3); Platelet Count 191 X10*3/uL (160-400); Red Blood Count 6.12 X10*6/uL (4.20-5.50); Red Cell Distribution Width 14.6 % (11.0-16.0); White Blood Count 7.3 X10*3/uL (4.8-10.8)
[2022-08-27 18:00] LABS: INTERNATIONAL NORM RATIO 1.1 (0.9-1.1); Prothrombin Time 12.4 SEC (10.0-13.1)
[2022-08-27 18:02] LABS: Alanine Aminotransferase 63 U/L (0-31); Albumin Level 4.2 g/dL (3.5-5.0); Alkaline Phosphatase 129 U/L (39-117); Anion Gap 12 (12-20); Aspartate Amino Transferase 50 U/L (5-31); Bilirubin Direct 0.2 mg/dL (0.0-0.5); Bilirubin Total 0.9 mg/dL (0.0-1.0); Blood Urea Nitrogen 12 mg/dL (9-16); COVID-19 Test Negative (Negative); Calcium 10.4 mg/dL (8.4-10.2); Carbon Dioxide 26 mmol/L (22-29); Chloride 100 mmol/L (96-108); Estimated Glomerular Filt Rate > 60; Glucose Random 229 mg/dL (60-115); IDNOW Serial# 6674DD1D; Magnesium 2.1 mg/dL (1.6-2.6); Potassium 3.8 mmol/L (3.3-5.1); Sodium 134 mmol/L (135-145)
[2022-08-27 18:07] LABS: B Type Natriuretic Peptide < 10 pg/mL (<100)
[2022-08-27 18:10] LABS: Troponin-I High Sensitivity < 2.7 ng/L (<3.5-17.0)
[2022-08-27 18:30] VITALS: BP 127/76; PULSE 82; RESP 16; TEMP 37; O2SAT 97
[2022-08-27 19:52] VITALS: BP 128/76; PULSE 78; RESP 15; TEMP 36.6; O2SAT 97
== END 2022-08-27 20:21 | disposition home or self-care (01) ==
PROVIDERS: Physician Assistant; Emergency Provider Student in an Organized Health Care Education/Training Program; PCP Pediatrics
DX: R07.89 Other chest pain (principal); F41.9 Anxiety disorder, unspecified; R05.9 Cough, unspecified; E11.9 Type 2 diabetes mellitus without complications; C85.90 Non-Hodgkin lymphoma, unspecified, unspecified site; Z20.822 Contact with and (suspected) exposure to COVID-19
CPT/HCPCS: 36415; 71046; 80048; 80076; 83735; 83880; 84484; 85025; 85610; 87635; 93005; 99283; 99285

== ENCOUNTER 2022-09-12 18:06 | Outpatient (REF) | payer MEDICAID, SELFPAY | END 2022-09-12 18:07 | disposition home or self-care (01) | LOC: HO.HHCLNP 18:06 | PROVIDERS: Visit Provider Emergency Medicine | DX: R07.0 Pain in throat (principal) | CPT/HCPCS: 87070; 87147 ==

== ENCOUNTER 2022-09-14 19:02 | Emergency (ER) | payer MEDICAID, SELFPAY ==
--- NOTE | ~2022-09-14 | XR_ITS ---
EXAMINATION: XR SOFT TISSUE NECK CLINICAL INDICATION: Sore throat COMPARISON: None available. TECHNIQUE: 2 views of the soft tissue neck were obtained. FINDINGS: There is a slightly thickened appearance of the upper prevertebral soft tissues which may be indicative of inflammation/pharyngitis. Airway appears preserved. Lung apices are well-aerated. Mild degenerative changes noted throughout the cervical spine. XR/XR soft tissue neck IMPRESSION: Slightly thickened appearance of the upper prevertebral soft tissues which may be indicative of inflammation/pharyngitis.
[2022-09-14 19:41] VITALS: BP 144/79; PULSE 73; RESP 18; TEMP 36; O2SAT 99; BMI 27.8
--- NOTE | 2022-09-14 19:44 | ED.EAR ---
HPI - Ear Problem General Chief complaint: General Medical Stated complaint: Ear and throat pain Time Seen by Provider: 09/14/22 21:53 Source: patient and spanish interpreter Mode of arrival: ambulatory Limitations: no limitations History of Present Illness HPI Narrative: 57yoF with a PMHx of lymphoma was diagnosed in 2005 had chemotherapy until 2006 has been in remission since then was presenting to the ER with complaints of left-sided neck pain that is radiating to her left ear for the past 8 days. Reports that she has been to her PCP and urgent cares and they continue to obtain strep and COVID swabs and they continue to be negative although patient continues to have this pain. She denies any fevers, chills, trouble swallowing or breathing, chest pain or shortness of breath, rashes, recent falls, others with similar symptoms or any other symptoms complaints or concerns at this time. Related Data Previous Rx's Medication Instructions Recorded loperamide 2 mg capsule 2 mg PO Q4H PRN loose stool #10 03/06/22 caps amoxicillin 500 mg tablet 500 mg PO BID #14 tabs 09/14/22 Allergies Allergy/AdvReac Type Severity Reaction Status Date / Time oxycodone [From PERCOCET] AdvReac Mild ANXIETY Verified 09/14/22 19:41 percocet AdvReac Mild anxiety Uncoded 08/28/20 15:50 Review of Systems Review of Systems: All other systems are reviewed and are negative Constitutional: Reports as per HPI and Reports no additional constitutional complaints Eyes: Reports as per HPI and Reports no additional eye complaints Reports system reviewed and no additional complaints, except as documented Cardiovascular: Reports as per HPI and Reports no additional cardiovascular complaints Respiratory: Reports as per HPI and Reports no additional respiratory complaints Gastrointestinal: Reports as per HPI and Reports no additional gastrointestinal complaints Genitourinary: Reports no additional female genitourinary complaints Musculoskeletal: Reports no additional musculoskeletal complaints Skin/Breast: Reports system reviewed and no additional complaints, except as docu Psychiatric: Reports no additional psychiatric complaints Endocrine: Reports no additional endocrine complaints Hematologic/Lymphatic: Reports no additional hematologic/lymphatic complaints Allergic/Immunologic: Reports no additional allergic/immunologic complaints Reports system reviewed and no additional complaints, except as documented and Reports Abnormal speech present PMFSH Past Medical History Medical History Diabetes Fibromyalgia HTN (hypertension) Non Hodgkin's lymphoma Social History Social History Alcohol intake: never Smoked in Last 30 Days: No Use of substances other than those prescribed or required for medical reasons: No Substance Use Type: Marijuana Advance Directives: No Advance Directives Information Provided: No Physical Exam Vital Signs: Vital Signs: Last Vital Signs Temp 99.1 F 09/14/22 21:55 Pulse 77 09/14/22 21:55 Resp 18 09/14/22 21:55 BP 166/79 H 09/14/22 21:55 Pulse Ox 97 09/14/22 21:55 O2 Del Method Room Air 09/14/22 21:55 BMI result Body Mass Index 27.8 Vital signs have been reviewed as appeared to be correct. Blood pressure normal. Heart rate normal. Respiration rate normal. Temperature normal. Oxygen saturation normal. Appearance: Alert. Oriented X3. No acute distress. Head: Normal external exam. Normocephalic. Atraumatic. No Mclaughlin signs noted. No raccoon eyes noted Eyes: PERRLA. EOMI. Conjunctiva and sclera normal. Eyelids normal. ENT: TM's Normal. Pharynx normal. Uvula midline. Moist mucous membranes. No trismus noted. No drooling noted. No muffled voice noted. Neck: Normal inspection. Neck supple. FROM. No adenopathy. Thyroid Normal. No meningeal signs. No neck mass noted. CVS: Normal heart rate and rhythm. Heart sound normal. No murmurs noted. Pulses normal throughout. Respiratory: No respiratory distress. Painless inspiration. Breath sounds normal. No wheezes/rales/rhonchi noted. Chest nontender. No accessory muscle usage noted or decreased air movement noted. Abdomen: Soft and nontender. Bowel sounds normal in all 4 quadrants. No distention noted. No organomegaly noted. No visible injury noted. Back: No CVA tenderness. Full range of motion noted. Skin: Skin warm and dry. Normal skin color. Normal skin turgor. No rashes/lesions/lacerations noted. Extremities: No lower extremity edema. Extremities exhibit normal range of motion. Extremities nontender. Neuro: Oriented X 3. Cranial nerve exam: II-XII are grossly intact No motor deficit. No sensory deficit. Reflexes normal. Course Course Course Narrative: RME- 19:50pm - 57yoF with a PMHx of lymphoma was diagnosed in 2005 had chemotherapy until 2006 has been in remission since then was presenting to the ER with complaints of left-sided neck pain that is radiating to her left ear for the past 8 days. Reports that she has been to her PCP and urgent cares and they continue to obtain strep and COVID swabs and they continue to be negative although patient continues to have this pain. She denies any fevers, chills, trouble swallowing or breathing, chest pain or shortness of breath, rashes, recent falls, others with similar symptoms or any other symptoms complaints or concerns at this time. Plan: Labs, CT scan of soft tissue neck, rapid strep, COVID/RSV/flu swab. Patient will be sent back to the waiting room to be evaluated in the ED. Reevaluation(s) Reevaluation #1: Eight days of left ear pain and left-sided throat pain, patient had multiple negative throat swab for strep infection, will start the patient on short course of amoxicillin for a subtle infection. Time: 23:15 Medications Administered Discontinued Medications Generic Name Dose Route Start Last Admin Trade Name Freq PRN Reason Stop Dose Admin Ibuprofen 600 mg 09/14/22 22:04 09/14/22 22:34 Ibuprofen 600 Mg Tablet PO 09/14/22 22:05 600 mg ONCE ONE Administration Medical Decision Making Differential Diagnosis Differential Diagnoses: The differential diagnosis associated with the presentation includes (Pharyngitis, otitis media,, fibromyalgia, electrolyte abnormalities, severe anemia.) Admission/Observation Consideration of admission/observation: Escalation of care including admission/observation considered Lab Data MDM Lab Attestation statement: I reviewed the patient's lab results. 09/14/22 20:08 09/14/22 20:08 Labs: Lab Results 09/14/22 09/14/22 09/14/22 Range/Units 20:08 20:08 20:08 WBC 10.0 (4.8-10.8) X10*3/uL RBC 5.07 (4.20-5.50) X10*6/uL Hgb 11.8 L (12.0-16.0) g/dl Hct 36.1 L (37.0-47.0) % MCV 71.2 L (80.0-98.0) fL MCH 23.3 L (27.0-33.0) pg MCHC 32.7 (31.0-35.0) g/dl RDW 14.1 (11.0-16.0) % Plt Count 276 D (160-400) X10*3/uL MPV 10.1 (9.4-12.3) fL Immature Gran % (Auto) 0.3 (0.0-0.4) % Neut % (Auto) 60.7 (45-73) % Lymph % (Auto) 29.7 (20-40) % Independence % (Auto) 6.5 (2-11) % Eos % (Auto) 2.5 (0-4) % Baso % (Auto) 0.3 (0-2) % Lymph # (Auto) 3.0 (1.2-4.9) X10*3/uL Independence # (Auto) 0.7 (0.1-1.2) X10*3/uL Eos # (Auto) 0.3 (0.0-0.4) X10*3/uL Baso # (Auto) 0.0 (0.0-0.2) X10*3/uL Abs Immat Gran (auto) 0.03 (0.00-0.03) X10*3/uL Absolute Neuts (auto) 6.1 (2.0-8.3) x10*3/uL Absolute Nucleated RBC 0.000 (0.0-0.012) X10*3/uL Nucleated RBC % (auto) 0.0 (0.0-0.2) /100WBC ESR 51 H (0-20) MM/HR PT 12.7 (10.0-13.1) SEC INR 1.1 (0.9-1.1) Sodium (135-145) mmol/L Potassium (3.3-5.1) mmol/L Chloride (96-108) mmol/L Carbon Dioxide (22-29) mmol/L Anion Gap (12-20) BUN (9-16) mg/dL Creatinine (0.5-1.4) mg/dL Estim Creat Clear Calc Estimated GFR Random Glucose (60-115) mg/dL Calcium (8.4-10.2) mg/dL Magnesium (1.6-2.6) mg/dL Total Bilirubin (0.0-1.0) mg/dL Direct Bilirubin (0.0-0.5) mg/dL AST (5-31) U/L ALT (0-31) U/L Alkaline Phosphatase (39-117) U/L C-Reactive Protein (< or = 0.50) mg/dL Total Protein (6.5-8.0) g/dL Albumin (3.5-5.0) g/dL Lipase (8-78) U/L TSH (0.32-4.0) uIU/mL Monoscreen (Negative) Influenza Type A (PCR) (Negative) Influenza Type B (PCR) (Negative) RSV RNA Qual (PCR) (Negative) SARS-CoV-2 RNA (RT-PCR) (Negative) S. pyogenes GrpA TANJA (Negative) 09/14/22 09/14/22 09/14/22 Range/Units 20:08 20:08 20:08 WBC (4.8-10.8) X10*3/uL RBC (4.20-5.50) X10*6/uL Hgb (12.0-16.0) g/dl Hct (37.0-47.0) % MCV (80.0-98.0) fL MCH (27.0-33.0) pg MCHC (31.0-35.0) g/dl RDW (11.0-16.0) % Plt Count (160-400) X10*3/uL MPV (9.4-12.3) fL Immature Gran % (Auto) (0.0-0.4) % Neut % (Auto) (45-73) % Lymph % (Auto) (20-40) % Independence % (Auto) (2-11) % Eos % (Auto) (0-4) % Baso % (Auto) (0-2) % Lymph # (Auto) (1.2-4.9) X10*3/uL Independence # (Auto) (0.1-1.2) X10*3/uL Eos # (Auto) (0.0-0.4) X10*3/uL Baso # (Auto) (0.0-0.2) X10*3/uL Abs Immat Gran (auto) (0.00-0.03) X10*3/uL Absolute Neuts (auto) (2.0-8.3) x10*3/uL Absolute Nucleated RBC (0.0-0.012) X10*3/uL Nucleated RBC % (auto) (0.0-0.2) /100WBC ESR (0-20) MM/HR PT (10.0-13.1) SEC INR (0.9-1.1) Sodium 140 (135-145) mmol/L Potassium 3.6 (3.3-5.1) mmol/L Chloride 104 (96-108) mmol/L Carbon Dioxide 27 (22-29) mmol/L Anion Gap 13 (12-20) BUN 9 (9-16) mg/dL Creatinine 0.76 (0.5-1.4) mg/dL Estim Creat Clear Calc 81.2 Estimated GFR > 60 Random Glucose 121 H (60-115) mg/dL Calcium 10.3 H (8.4-10.2) mg/dL Magnesium 2.4 (1.6-2.6) mg/dL Total Bilirubin 0.5 (0.0-1.0) mg/dL Direct Bilirubin 0.2 (0.0-0.5) mg/dL AST 19 (5-31) U/L ALT 15 (0-31) U/L Alkaline Phosphatase 110 (39-117) U/L C-Reactive Protein 3.32 H (< or = 0.50) mg/dL Total Protein 7.6 (6.5-8.0) g/dL Albumin 3.9 (3.5-5.0) g/dL Lipase 39 (8-78) U/L TSH 0.64 (0.32-4.0) uIU/mL Monoscreen Negative (Negative) Influenza Type A (PCR) (Negative) Influenza Type B (PCR) (Negative) RSV RNA Qual (PCR) (Negative) SARS-CoV-2 RNA (RT-PCR) (Negative) S. pyogenes GrpA TANJA Negative (Negative) 09/14/22 Range/Units 20:08 WBC (4.8-10.8) X10*3/uL RBC (4.20-5.50) X10*6/uL Hgb (12.0-16.0) g/dl Hct (37.0-47.0) % MCV (80.0-98.0) fL MCH (27.0-33.0) pg MCHC (31.0-35.0) g/dl RDW (11.0-16.0) % Plt Count (160-400) X10*3/uL MPV (9.4-12.3) fL Immature Gran % (Auto) (0.0-0.4) % Neut % (Auto) (45-73) % Lymph % (Auto) (20-40) % Independence % (Auto) (2-11) % Eos % (Auto) (0-4) % Baso % (Auto) (0-2) % Lymph # (Auto) (1.2-4.9) X10*3/uL Independence # (Auto) (0.1-1.2) X10*3/uL Eos # (Auto) (0.0-0.4) X10*3/uL Baso # (Auto) (0.0-0.2) X10*3/uL Abs Immat Gran (auto) (0.00-0.03) X10*3/uL Absolute Neuts (auto) (2.0-8.3) x10*3/uL Absolute Nucleated RBC (0.0-0.012) X10*3/uL Nucleated RBC % (auto) (0.0-0.2) /100WBC ESR (0-20) MM/HR PT (10.0-13.1) SEC INR (0.9-1.1) Sodium (135-145) mmol/L Potassium (3.3-5.1) mmol/L Chloride (96-108) mmol/L Carbon Dioxide (22-29) mmol/L Anion Gap (12-20) BUN (9-16) mg/dL Creatinine (0.5-1.4) mg/dL Estim Creat Clear Calc Estimated GFR Random Glucose (60-115) mg/dL Calcium (8.4-10.2) mg/dL Magnesium (1.6-2.6) mg/dL Total Bilirubin (0.0-1.0) mg/dL Direct Bilirubin (0.0-0.5) mg/dL AST (5-31) U/L ALT (0-31) U/L Alkaline Phosphatase (39-117) U/L C-Reactive Protein (< or = 0.50) mg/dL Total Protein (6.5-8.0) g/dL Albumin (3.5-5.0) g/dL Lipase (8-78) U/L TSH (0.32-4.0) uIU/mL Monoscreen (Negative) Influenza Type A (PCR) NEGATIVE (Negative) Influenza Type B (PCR) NEGATIVE (Negative) RSV RNA Qual (PCR) NEGATIVE (Negative) SARS-CoV-2 RNA (RT-PCR) NEGATIVE (Negative) S. pyogenes GrpA TANJA (Negative) Independent Interpretation I performed an independent interpretation of an: Plain X-Ray (Soft tissue neck: No acute soft tissue pathology.) Radiology Impression Discussion of test interpretation with radiology: I have reviewed the radiologist's reading. Discharge Plan Discharge Clinical Impression: Pharyngitis Patient Disposition: Home, Self-Care Instructions: Pharyngitis (ED) Prescriptions: New amoxicillin 500 mg tablet 500 mg PO BID Qty: 14 0RF No Action loperamide 2 mg capsule 2 mg PO Q4H PRN (Reason: loose stool) Qty: 10 0RF Rx Instructions: administer after each loose stool until symptoms controlled; do not exceed 8 mg per 24 hrs Referrals: Keyona Chaudhari MD [Primary Care Provider] -
[2022-09-14 20:15] LABS: MANUAL DIFF FLAG NO
[2022-09-14 20:17] LABS: Basophils Percent Auto 0.3 % (0-2); Eosinophils Absolute Auto 0.3 X10*3/uL (0.0-0.4); Eosinophils Percent Auto 2.5 % (0-4); Hematocrit 36.1 % (37.0-47.0); Hemoglobin 11.8 g/dl (12.0-16.0); Imm Gran Abs Auto 0.03 X10*3/uL (0.00-0.03); Imm Gran Pct Auto 0.3 % (0.0-0.4); Lymphocytes Percent Auto 29.7 % (20-40); Mean Corpuscular HGB Conc 32.7 g/dl (31.0-35.0); Mean Corpuscular Hemoglobin 23.3 pg (27.0-33.0); Mean Corpuscular Volume 71.2 fL (80.0-98.0); Mean Platelet Volume 10.1 fL (9.4-12.3); Monocytes Absolute Auto 0.7 X10*3/uL (0.1-1.2); Monocytes Percent Auto 6.5 % (2-11); Neutrophils Absolute Auto 6.1 x10*3/uL (2.0-8.3); Neutrophils Percent Auto 60.7 % (45-73); Platelet Count 276 X10*3/uL (160-400); Red Blood Count 5.07 X10*6/uL (4.20-5.50); Red Cell Distribution Width 14.1 % (11.0-16.0)
[2022-09-14 20:24] LABS: INTERNATIONAL NORM RATIO 1.1 (0.9-1.1); Prothrombin Time 12.7 SEC (10.0-13.1)
[2022-09-14 20:30] LABS: IDNOW Serial# 08D9AD1C; Strep A Nucleic Acid Negative (Negative)
[2022-09-14 20:41] LABS: Monotest Negative (Negative)
[2022-09-14 20:54] LABS: Influenza A PCR NEGATIVE (Negative); Influenza B PCR NEGATIVE (Negative); Resp Syncy Virus RNA Qual PCR NEGATIVE (Negative); SARS COV2 PCR INHOUSE NEGATIVE (Negative)
[2022-09-14 20:56] LABS: Alanine Aminotransferase 15 U/L (0-31); Albumin Level 3.9 g/dL (3.5-5.0); Alkaline Phosphatase 110 U/L (39-117); Anion Gap 13 (12-20); Aspartate Amino Transferase 19 U/L (5-31); Bilirubin Direct 0.2 mg/dL (0.0-0.5); Bilirubin Total 0.5 mg/dL (0.0-1.0); Blood Urea Nitrogen 9 mg/dL (9-16); C Reactive Protein 3.32 mg/dL (< or = 0.50); Calcium 10.3 mg/dL (8.4-10.2); Carbon Dioxide 27 mmol/L (22-29); Chloride 104 mmol/L (96-108); Creatinine Clr Calc Pharmacy 81.2; Estimated Glomerular Filt Rate > 60; Glucose Random 121 mg/dL (60-115); Lipase 39 U/L (8-78); Magnesium 2.4 mg/dL (1.6-2.6); Potassium 3.6 mmol/L (3.3-5.1); Sodium 140 mmol/L (135-145); Total Protein 7.6 g/dL (6.5-8.0)
[2022-09-14 21:09] LABS: TSH reflex Free T4 0.64 uIU/mL (0.32-4.0)
[2022-09-14 21:13] LABS: Erythrocyte Sedimentation Rate 51 MM/HR (0-20)
[2022-09-14 21:55] VITALS: BP 166/79; PULSE 77; RESP 18; TEMP 37.3; O2SAT 97
[2022-09-14] MEDS: Ibuprofen 600 MG TABLET PO (22:34)
[2022-09-15 00:13] VITALS: BP 153/73; PULSE 74; RESP 18; TEMP 37.1; O2SAT 97
== END 2022-09-15 00:31 | disposition home or self-care (01) ==
PROVIDERS: Physician Assistant Medical; Emergency Provider Emergency Medicine; PCP Pediatrics
DX: J02.9 Acute pharyngitis, unspecified (principal); M54.2 Cervicalgia; Z20.822 Contact with and (suspected) exposure to COVID-19; Z20.828 Contact with and (suspected) exposure to other viral communicable diseases; Z79.899 Other long term (current) drug therapy
CPT/HCPCS: 0241U; 70360; 80053; 82248; 83690; 83735; 84443; 85025; 85610; 85652; 86140; 86308; 87651; 99284

== ENCOUNTER 2022-12-05 13:47 | Outpatient (RCR) | payer MEDICAID, SELFPAY ==
--- NOTE | 2022-12-15 13:52 | MHC.OT.DC ---
[address] [phone] F: [phone] Occupational Therapy Discharge Note Patient Name: Neelam Cullen Provider: Julia Mandel Diagnosis: CHRONIC HAND PAIN Date of Evaluation: 12/05/22 Date of Discharge: 12/15/22 Treatments to Date: 1 Cancellations to Date: 0 No Shows to Date: 3 Discharge Status: Visit Non-compliance Discharge Summary: MS CULLEN WAS SEEN FOR HER OT EVALUATION AND [facility] DID NOT FOLLOW UP FOR ADDITIONAL VISITS. DURING HER OT EVAL, A CUSTOM THUMB SPICA ORTHOSIS WAS FABRICATED AND Pt WAS GUIDED THROUGH A HEP. SHE WILL BE DISCHARGED FORM SKILLED OT AT THIS TIME DUE TO THE CORE ATTENDANCE POLICY. Electronically Signed By: MARIA FERNANDA PATINO/Lucien Reviewed/agree with student documentation: N/A Therapist: Please Sign and return to therapist, thank you for your referral.
== END 2022-12-15 13:50 | disposition home or self-care (01) ==
LOC: HO.OT 13:47
PROVIDERS: PCP Pediatrics; Visit Provider Family Medicine
DX: G89.29 Other chronic pain (principal); M79.642 Pain in left hand
CPT/HCPCS: 29125; 97110; 97166; 97760

== ENCOUNTER 2022-12-10 10:21 | Outpatient (AMB) | payer MEDICAID, SELFPAY ==
--- NOTE | 2022-12-10 10:46 | MHC.OFFVIS ---
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 States she is experiencing numbness and tingling for the last year and has worsen in the last 8 months. Reports at times she drops items due to weakness. Patient has tried O.T in [place] about 1 year ago with no improvement. States currently she has constant numbness at tips of her fingers. States she was seen with her PCP who order O.T and will be starting thursday. No EMG done. Allergies oxycodone [From PERCOCET] Adverse Reaction (Mild, Verified 12/10/22 10:53) ANXIETY percocet Adverse Reaction (Mild, Uncoded 12/10/22 10:50) anxiety Medication List - Last Reconciled 12/10/22 by Bonita Rodriguez MD cetirizine 10 mg PO QAM dulaglutide (Trulicity) mg subcut dulaglutide (Trulicity) mg subcut gabapentin 300 mg PO TID glipizide ER 10 mg PO DAILY lisinopril-hydrochlorothiazide 20-25 mg 1 tab PO QAM loperamide 2 mg PO Q4H PRN zolpidem 5 mg PO BEDTIME PRN HPI HPI Comments History of Present Illness Details 12 years ago, had bilateral CTS surgeries, and MI.. Improved doing well until about 2 years ago. Left hand started got numb and painful. [place] on all fingers except 5th digit. Pain on wrist. Has neck pain but not associated with hand/wrist pain. Treatment done so far: NSAIDs therapy - referred by PCP, to start on Thursday EMG done before surgeries, 12 years ago. In [place]. PFSH Medical History (Updated 12/10/22 @ 11:09 by Bonita Rodriguez MD) Non Hodgkin's lymphoma Fibromyalgia HTN (hypertension) Diabetes Surgical History (Updated 12/10/22 @ 11:09 by Bonita Rodriguez MD) History of carpal tunnel surgery Social History (Updated 12/10/22 @ 10:55 by Caitlin Benitez [facility]) Alcohol intake: never Substance Use Type: Marijuana Current occupational status: disabled Current occupation: rt hand/ Review of Systems Const All systems reviewed & are unremarkable except as noted in HPI and below Physical Exam Vital Signs: BMI result Body Mass Index 27.8 Constitutional: Patient appears to be in no acute distress, well nourished and well developed. MSK: Inspection reveals appropriate head and neck positioning. No pain with palpation over the neck musculature. Cervical ROM was full. Spurling's sign negative. Bilateral shoulder ROM WNL. No ligamentous laxity or crepitance. No increased effusion. Hawkin's test is negative. No joint effusion noted. No deformity noted. No intrinsic hand weakness noted. No atrophy noted. Samantha test negative. Carpal compression test positive left. Tinel sign negative. Strength is 5/5 in all muscle groups tested. No increased tone noted. Neurological: Neurologic examination of the upper and lower extremities was nonfocal with intact sensation, muscle stretch reflexes and without focal motor deficits . Che?s negative bilaterally. Gait is non-antalgic without loss of balance. Assessment & Plan Assessment & Plan (1) Numbness of left hand: Code(s): R20.0 - Anesthesia of skin (2) Carpal tunnel syndrome of left wrist: Code(s): G56.02 - Carpal tunnel syndrome, left upper limb Plan Clinical diagnosis of recurrent left Carpal Tunnel Syndrome, history of carpal tunnel surgeries 12 years ago. Recommend repeat EMG. Continue with OT. Advised to remove metal from a wrist brace so it would be more comfortable to wear. Assessment and plan discussed with patient, and patient was agreeable. All questions were answered thoroughly. Bonita Rodriguez MD, MARÍA Board Certified, [place] [employer] and Rehabilitation (ABPMR) Board Certified, [place] [employer] Electro[employer] (ABEM) Orders: Orders NE electromyogram (EMG) Today R20.0 - Anesthesia of skin NE nerve conduction velocity Today R20.0 - Anesthesia of skin Coding Level of Care Code New Pt Level 3 (49302) Diagnoses Numbness of left hand R20.0 Carpal tunnel syndrome of left wrist G56.02
[2022-12-10 10:47] VITALS: BMI 27.8
== END 2022-12-10 11:08 | disposition home or self-care (01) ==
PROVIDERS: PCP Pediatrics; Visit Provider Physical Medicine & Rehabilitation
DX: R20.0 Anesthesia of skin (principal); G56.02 Carpal tunnel syndrome, left upper limb
CPT/HCPCS: 99203

== ENCOUNTER → 2022-12-10 10:21 | Outpatient (BNVA) | payer MEDICAID, SELFPAY | PROVIDERS: PCP Pediatrics; Visit Provider Physical Medicine & Rehabilitation | DX: R20.0 Anesthesia of skin (principal); G56.02 Carpal tunnel syndrome, left upper limb; M79.7 Fibromyalgia | CPT/HCPCS: 99202 ==

== ENCOUNTER 2023-01-01 14:16 | Outpatient (REF) | payer MEDICAID, SELFPAY ==
--- NOTE | 2023-01-01 14:19 | EMG_ITS ---
Chief complaint: Left hand numbness and pain, she thinks she had surgery 12 years ago but I do not see a surgical scar Reason for referral: Evaluate for Carpal Tunnel Syndrome Procedure done: Left upper extremity NCS/EMG Precautions and/or limitations: None The limb temperature was monitored continuously and remained between 32-36 degrees C during the performance of the NCS. Nerve Conduction Studies Anti Sensory Summary Table ?Stim Site NR Onset (ms) Norm Onset (ms) Peak (ms) Norm Peak (ms) O-P Amp (?V) Norm O-P Amp Site1 Site2 Delta-0 (ms) Dist (cm) Ramírez (m/s) Norm Ramírez (m/s) Left Median Anti Sensory (2nd Digit) Wrist NR <3.6 >10 Wrist 2nd Digit 14.0 Left Radial Anti Sensory (Thumb) Forearm ? 2.1 2.7 <3.1 5.4 Forearm Thumb 2.1 0.0 Left Ulnar Anti Sensory (5th Digit) Wrist ? 2.7 3.3 <3.7 6.6 >15.0 Wrist 5th Digit 2.7 14.0 52 Motor Summary Table ?Stim Site NR Onset (ms) Norm Onset (ms) O-P Amp (mV) Norm O-P Amp iAmp (mV) Amp (1st) (%) Site1 Site2 Delta-0 (ms) Dist (cm) Ramírez (m/s) Norm Ramírez (m/s) Left Median Motor (Abd Poll Brev) Wrist ? 5.8 <3.9 5.9 >4.5 7.2 100.0 Elbow Wrist 4.1 19.0 46 >45 Elbow ? 9.9 6.6 8.0 111.9 Left Ulnar Motor (Abd Dig Minimi) Wrist ? 2.6 <3.0 5.7 >5 7.8 100.0 B Elbow Wrist 3.2 17.5 55 >45 B Elbow ? 5.8 4.8 6.9 84.2 A Elbow B Elbow 2.6 10.0 38 >45 A Elbow ? 8.4 5.1 7.0 89.5 EMG ?Side Muscle Nerve Root Ins Act Fibs Psw Amp Dur Poly Recrt Int Pat Comment Left 1stDorInt Ulnar C8-T1 Nml Nml Nml Nml Nml 0 Nml Complete Left FlexCarRad Median C6-7 Nml Nml Nml Nml Nml 0 Nml Complete Left Biceps Musculocut C5-6 Nml Nml Nml Nml Nml 0 Nml Complete Left Triceps Radial C6-7-8 Nml Nml Nml Nml Nml 0 Nml Complete Left Deltoid Axillary C5-6 Nml Nml Nml Nml Nml 0 Nml Complete FINDINGS: Left median motor nerve showed prolonged distal latency, normal amplitude and normal conduction velocity. Left ulnar motor nerve showed normal distal latency, normal amplitude and slow conduction velocity across elbow. Left median sensory nerve showed absent response. Left ulnar sensory nerve showed small amplitude. All other nerves tested were within normal. Concentric needle EMG was performed in selected muscles of the left upper extremity.. Study did not reveal Signs of electric abnormalities as shown in the table below. IMPRESSION: 1. This is an abnormal study. 2. There is electrodiagnostic evidence for left moderate-severe median neuropathy at the wrist, consistent with carpal tunnel syndrome. 3. There is electrodiagnostic evidence for left ulnar neuropathy at the elbow. 4. There is no electrodiagnostic evidence for brachial plexopathy or cervical radiculopathy. CLINICAL COMMENT: Referring to Dr. Nuñez for discussion of surgery. Thank you for your kind referral. Bonita Rodriguez MD, MARÍA Board Certified, [place] [employer] and Rehabilitation (ABPMR) Board Certified, [place] [employer] Electrodiagnostic [employer] (ABEM) [address] [id number] [facility]
== END 2023-01-01 14:17 | disposition home or self-care (01) ==
LOC: HO.NEURO 14:16
PROVIDERS: PCP Pediatrics; Visit Provider Physical Medicine & Rehabilitation
DX: R20.0 Anesthesia of skin (principal)
CPT/HCPCS: 95886; 95909

== ENCOUNTER → 2023-01-01 14:19 | Outpatient (BNV) | payer MEDICAID, SELFPAY | PROVIDERS: PCP Pediatrics; Visit Provider Physical Medicine & Rehabilitation | DX: G56.12 Other lesions of median nerve, left upper limb (principal); G56.02 Carpal tunnel syndrome, left upper limb; G56.22 Lesion of ulnar nerve, left upper limb | CPT/HCPCS: 95886; 95909 ==

== ENCOUNTER 2023-04-01 08:37 | Outpatient (AMB) | payer MEDICAID, SELFPAY ==
[2023-04-01 08:54] VITALS: BMI 27.8
--- NOTE | 2023-04-01 08:54 | MHC.OFFVIS ---
Intake Vital Signs 04/01/23 08:54 Height 5 ft 4 in Weight 162 lb BMI 27.8 Intake Visit Reasons: O/V LT CTS/ discuss sx per RB Intake Note: Neelam 58 yr old female presents today for her EMG review. Patient was last seen with Dr. Tran who wanted patient to have a new EMG and wear a wrist brace in the mean time. Patient has history of left carpal tunnel surgeries 12 years ago and was advise to be re-evaluated with Dr. Nuñez to discuss surgery. States she is diabetic and timmy be seeing her PCP on 04/03/23 for her A1C check. Allergies oxycodone [From PERCOCET] Adverse Reaction (Mild, Verified 04/01/23 08:55) ANXIETY percocet Adverse Reaction (Mild, Uncoded 04/01/23 08:55) anxiety HPI O/V LT CTS/ discuss sx per RB HPI Details Neelam is a 58 year old right hand dominant Diabetic Turkish speaking woman who presents for a NCS review of her left hand numbness. She complains of numbness in all fingers of her left hand, including the small finger. Symptoms are constant, but worsens occasionally. She reports having a left carpal tunnel release in ~2011, and says her symptoms improved following surgery, but she began to develop numbness recently. She is a Diabetic, and says she has an appointment at the end of the week (04/03/23) to have her HgA1c checked. She has Fibromyalgia and is a homemaker [facility] Medical History (Updated 04/01/23 @ 09:19 by Jacoby Hendrickson) Non Hodgkin's lymphoma Fibromyalgia HTN (hypertension) Diabetes Surgical History History of carpal tunnel surgery Social History Alcohol intake: never Substance Use Type: Marijuana Current occupational status: disabled Current occupation: rt hand/ Review of Systems Const All systems reviewed & are unremarkable except as noted in HPI and below Physical Exam Vital Signs: BMI result Body Mass Index 27.8 Const General: cooperative, healthy appearing and no acute distress Orientation/consciousness: patient oriented x3 HEENT Head: Yes normocephalic and Yes atraumatic Eyes EOM: EOMs intact bilaterally Resp Effort & Inspection: normal respiratory effort and able to speak in complete sentences Cardio Jugular venous distension: no JVD Skin General skin exam: turgor normal Rashes: no rashes Neuro General: patient oriented x3 Extrem Other: Evaluation of Left Upper Extremity: The patient is alert, oriented, and in no acute distress Neuro: Dense numbness to the tips of all digits today in clinic, including the small finger No thenar or intrinsic wasting Good APB muscle belly firing and good finger cross Vascular: Cap refill brisk ROM: She can make a fist and extend al her digits No locking or catching Skin: No lacerations or abrasions. General: No Ecchymosis. No Erythema or evidence of infection. Nerve Conduction Study: Left side only IMPRESSION: 1. This is an abnormal study. 2. There is electrodiagnostic evidence for left moderate-severe median neuropathy at the wrist, consistent with carpal tunnel syndrome. 3. There is electrodiagnostic evidence for left ulnar neuropathy at the elbow. 4. There is no electrodiagnostic evidence for brachial plexopathy or cervical radiculopathy. Bonita Rodriguez MD, MARÍA 01/01/23 Psych Appearance: grossly normal Affect: normal affect Attitude: cooperative Assessment & Plan Assessment & Plan (1) Carpal tunnel syndrome of left wrist: Code(s): G56.02 - Carpal tunnel syndrome, left upper limb (2) Cubital tunnel syndrome on left: Code(s): G56.22 - Lesion of ulnar nerve, left upper limb (3) Diabetes: Code(s): E11.9 - Type 2 diabetes mellitus without complications (4) Fibromyalgia: Code(s): M79.7 - Fibromyalgia Plan Assessment & Plan: 1. Left Carpal tunnel syndrome, recurrent, moderate-severe DOS: ~2011 at an outside clinic With dense numbness No muscle wasting 2. Left Cubital tunnel syndrome With dense numbness No muscle wasting I educated her about these conditions I discussed operative and non-operative treatment options The patient would like to proceed with surgery The risks and benefits of operative treatment were discussed with the patient and the patient wishes to proceed with surgery. These risks include, but are not limited to risk of damage to blood vessels, nerves, tendons, infection, recurrence, incomplete relief of preoperative symptoms, persistent pain, possible need for further surgery and the risks associated with regional blocks and anesthesia. The plan is to take the patient to the operating room sometime in the next few weeks for the following procedures: 1. Left REPEAT carpal tunnel release, under general 2. Left cubital tunnel release vs transposition, under general All of the preoperative paperwork including the consent was reviewed today. All the patient's questions were answered. The patient understands that they will be contacted by our clinic scheduler soon to schedule this procedure She denies blood thinners, asthma, heart, lung, kidney issues She is a Diabetic, she says this is well-controlled, but she has an appointment with her PCP on 04/03/23 to have her HgA1c checked. I explained this needs to be <8.0% in order to proceed with surgery Scribed for Cristina Nuñez MD by Jacoby Hendrickson, certified medical technician, on 04/01/23 at 9:20 AM, EST. Coding Level of Care Code New Pt Level 4 (46491) Diagnoses Carpal tunnel syndrome of left wrist G56.02 Cubital tunnel syndrome on left G56.22 Diabetes E11.9 Fibromyalgia M79.7
== END 2023-04-01 09:32 | disposition home or self-care (01) ==
PROVIDERS: PCP Pediatrics; Visit Provider Orthopaedic Surgery
DX: G56.02 Carpal tunnel syndrome, left upper limb (principal); G56.22 Lesion of ulnar nerve, left upper limb; E11.9 Type 2 diabetes mellitus without complications; M79.7 Fibromyalgia
CPT/HCPCS: 99214

== ENCOUNTER → 2023-04-01 08:37 | Outpatient (BNVA) | payer MEDICAID, SELFPAY | PROVIDERS: PCP Pediatrics; Visit Provider Orthopaedic Surgery | DX: G56.02 Carpal tunnel syndrome, left upper limb (principal); G56.22 Lesion of ulnar nerve, left upper limb; E11.9 Type 2 diabetes mellitus without complications; M79.7 Fibromyalgia | CPT/HCPCS: 99212 ==

== ENCOUNTER 2023-04-23 05:47 | Day surgery (SDC) | payer MEDICAID, SELFPAY ==
[2023-04-21 08:18] VITALS: BMI 27.8
--- NOTE | 2023-04-22 09:17 | P.CONAN_ITS ---
Documented by User: Ashleigh Matt NP 04/22/23 09:18 HPI - Anesthesia Eval Consult details Narrative: 58yo F for Left Cubital Tunnel Release verses transposition, Left REPEAT Carpal Tunnel Release Anesthesia Pre-Procedure Meds Is the patient on any of the following meds?: Dulaglutide (Trulicity) [facility] Active Problems Active Problems: All Active Problems (Updated 04/01/23 @ 09:19 by Jacoby Hendrickson) Fibromyalgia (Acute) Diabetes (Acute) Cubital tunnel syndrome on left (Acute) Ulnar neuropathy at elbow (Acute) Carpal tunnel syndrome of left wrist (Acute) Numbness of left hand (Acute) Past Medical History Medical History Non Hodgkin's lymphoma Fibromyalgia HTN (hypertension) Diabetes Surgical History Surgical History History of surgery of head History of cholecystectomy History of hysterectomy History of carpal tunnel surgery Social History Social History Alcohol intake: never Patient Tobacco Use Status: Former Tobacco user Quit Date: 2002 Tobacco use type: Cigarette Years Smoked: 10 Smoked in Last 30 Days: No Use of substances other than those prescribed or required for medical reasons: Yes Substance Use Type: Marijuana Substance Use Frequency: Daily Are you DNR?: No Advance Directives: No Advance Directives Information Provided: Yes Current occupational status: disabled Current occupation: rt hand/ Meds Allergies Allergy/AdvReac Type Severity Reaction Status Date / Time oxycodone [From PERCOCET] AdvReac Mild Anxiety Verified 04/23/23 06:16 percocet AdvReac Mild Anxiety Uncoded 04/23/23 06:16 Home Medications Medication Instructions Recorded Confirmed Last Taken Type cetirizine 10 mg tablet 10 mg PO QAM 12/10/22 04/23/23 Unknown History dulaglutide 3 mg/0.5 mL 3 mg subcut DIRECTED 12/10/22 04/23/23 04/15/23 History subcutaneous pen injector (Trulicity) gabapentin 300 mg capsule 300 mg PO TID 12/10/22 04/23/23 04/23/23 History glipizide 10 mg tablet, extended 10 mg PO DAILY 12/10/22 04/23/23 04/22/23 History release 24 hr lisinopril 20 1 tab PO QAM 12/10/22 04/23/23 04/22/23 History mg-hydrochlorothiazide 25 mg tablet zolpidem 5 mg tablet 5 mg PO BEDTIME PRN Sleep 12/10/22 04/23/23 Unknown History Exam Height,Weight and Vital Signs: Height 5 ft 4 in Weight 73.482 kg Narrative Narrative: EKG 07/2022 Vent. Rate : 080 BPM Atrial Rate : 080 BPM P-R Int : 134 ms QRS Dur : 084 ms QT Int : 402 ms P-R-T Axes : -02 029 004 degrees QTc Int : 463 ms Normal sinus rhythm Normal ECG When compared with ECG of 06-MAR-2022 18:11, No significant change was found Assessment and Plan Assessment Anesthesia Assessment: Chart Reviewed Documented by User: Cristina Cooper MD 04/23/23 07:32 HPI - Anesthesia Eval Anesthesia Pre-Procedure Meds If Yes to any meds - educate patient: Pt education - increased risk of aspiration and Pt education - possibility of cancelled proc at provider's discretion PMFSH Past Medical History Medical History Non Hodgkin's lymphoma Fibromyalgia HTN (hypertension) Diabetes Family History Family history of problems with anesthesia: No Surgical History Surgical History History of surgery of head History of cholecystectomy History of hysterectomy History of carpal tunnel surgery History of Problems with Anesthesia: Unobtainable Social History Social History Alcohol intake: never Patient Tobacco Use Status: Former Tobacco user Quit Date: 2002 Tobacco use type: Cigarette Years Smoked: 10 Smoked in Last 30 Days: No Use of substances other than those prescribed or required for medical reasons: Yes Substance Use Type: Marijuana Substance Use Frequency: Daily Are you DNR?: No Advance Directives: No Advance Directives Information Provided: Yes Current occupational status: disabled Current occupation: rt hand/ Meds Allergies Allergy/AdvReac Type Severity Reaction Status Date / Time oxycodone [From PERCOCET] AdvReac Mild Anxiety Verified 04/23/23 06:16 percocet AdvReac Mild Anxiety Uncoded 04/23/23 06:16 Home Medications Medication Instructions Recorded Confirmed Last Taken Type cetirizine 10 mg tablet 10 mg PO QAM 12/10/22 04/23/23 Unknown History dulaglutide 3 mg/0.5 mL 3 mg subcut DIRECTED 12/10/22 04/23/23 04/15/23 History subcutaneous pen injector (Trulicity) gabapentin 300 mg capsule 300 mg PO TID 12/10/22 04/23/23 04/23/23 History glipizide 10 mg tablet, extended 10 mg PO DAILY 12/10/22 04/23/23 04/22/23 History release 24 hr lisinopril 20 1 tab PO QAM 12/10/22 04/23/23 04/22/23 History mg-hydrochlorothiazide 25 mg tablet zolpidem 5 mg tablet 5 mg PO BEDTIME PRN Sleep 12/10/22 04/23/23 Unknown History Exam Airway Mallampati Class: II TM Dist: >3cm Neck ROM: Full Heart: cta Lungs: rrr Assessment and Plan Assessment Anesthesia Assessment: Anesthesia Plan Discussed and Smoking Cess. Discussed (daily lea) Final Anesthetic Review Family History of Problems with Anesthesia: No History of Problems with Anesthesia: Unobtainable NPO: Yes ASA Class: II Final Preanesthetic Review: No Changes in Pt Med Stat, Meds/Allgs Chart Reviewed, Consent Obtained/Reviewed and Anes Risks/Benef Reviewed Patient Risk: Intermediate Procedure Risk: Intermediate Anesthetic Plan Anesthetic Plan: GA Disposition: Standard PACU
[2023-04-23] VITALS (11 sets, daily range): BP systolic 92–128; BP diastolic 49–69; PULSE 73–94; RESP 10–16; TEMP 36.6–36.7; O2SAT 93–100; BMI 29.3
[2023-04-23 06:39] LABS: Glucose, Whole Blood 139 mg/dL (60-115)
[2023-04-23] MEDS: Lactated Ringers 1,000 ML 100 ML IVCONT (06:50)
--- NOTE | 2023-04-23 07:46 | MHC.SHP ---
Pre-Procedural Eval Section A - 24 Hr Update-Section A only Date of Service: 04/23/23 The patient is an INPATIENT: No Changes since office visit: No Cold of Flu in the past 2 weeks, No New Medical Problems, No Changes in Medication and No Patient answered all questions The patient has been examined within 24 hours of the surgical procedure. The History & Physical has been completed within 30 days and I have reviewed it.: Yes Section B - Complete if H&P > 30 days Chief Complaint: Lesion of ulnar nerve,carpar tunnel Allergies: Allergies Allergy/AdvReac Type Severity Reaction Status Date / Time oxycodone [From PERCOCET] AdvReac Mild Anxiety Verified 04/23/23 06:16 percocet AdvReac Mild Anxiety Uncoded 04/23/23 06:16 Plan I have reviewed the history and physical and performed a pertinent physical examination on my patient. No changes have occurred unless specified. Time Spent With Patient Time: Total time managing care of this patient today ____ minutes.
--- NOTE | 2023-04-23 07:47 | W.PM.OPN ---
Operative Note Operative Note Date of Service: 04/23/23 Narrative: Operative Note Narrative: Preop diagnosis: 1. Left Cubital tunnel syndrome 2. Left carpal tunnel syndrome Postop diagnosis: Same Procedure: 1. Left Cubital Tunnel Release 2. Left carpal tunnel release Surgeon: Cristina Nuñez MD Anesthesia: General Anesthesia Findings: Thickening and fibrosis about the ulnar nerve at the cubital tunnel Implants: none Tourniquet time: 32 minutes EBL: 5.0 ml Specimen: none Drains: None Complications: None Disposition: Brought to the recovery room in stable condition Plan: Follow-up in 10-14 days for wound check, and suture removal Indications: The patient is 58 years old with left cubital tunnel syndrome and left carpal tunnel syndrome . The risks and benefits of operative treatment, including but not limited to risk of damage to blood vessels, nerves, tendons, infection, recurrence, persistent pain or numbness, incomplete resolution of preoperative symptoms, or need for further surgery were discussed with the patient and they wished to proceed with surgery. Procedure: Once consent was obtained patient was brought back to the operating suite and placed in the operating table in a supine position. Perioperative antibiotics and anesthesia was administered by the anesthesia team. The limb was prepped and draped in a standard surgical fashion, and a sterile tourniquet applied to the proximal aspect of the left upper extremity. The limb was elevated exsanguinated with Esmarch bandage and the tourniquet inflated to 250 mm of mercury for a total tourniquet time of 32 minutes. Once assured that we had a good block, a 2.0 cm longitudinal incision was made centered over the left carpal tunnel. The incision was made through the skin to the subcutaneous tissues using a #15 blade. Dissection was made down to the level of the transverse carpal ligament with care being taken to protect the palmar cutaneous nerve. Once the transverse carpal ligament was clearly visualized, a longitudinal incision was made in the transverse carpal ligament 1st using a #15 blade, then using tenotomy scissors under direct visualization. Care was taken to look for and protect the motor branch of the median nerve when seen in this area. Once satisfied with our carpal tunnel release the wound was irrigated with normal saline. A 6 cm gently curved but longitudinally oriented incision was made centered over the cubital tunnel of the left upper extremity. Incision was made through the skin to the subcutaneous tissues using a # 15 Blade. I then dissected down to the level of the medial epicondyle and the cubital tunnel using tenotomy scissors. Care was taken to protect the lateral antebrachial cutaneous nerve. The ulnar nerve was identified just posterior to the medial intermuscular septum. The ulnar nerve was released in a proximal to distal direction using tenotomy in iris scissors while directly visualizing and protecting the ulnar nerve. Thickening and fibrosis was appreciated about the ulnar nerve as it passed through the cubital tunnel. The ulnar nerve was assessed as I passed the elbow through full flexion and extension and was found to remain stable within its groove. At this point the tourniquet was deflated and hemostasis obtained with a brief period of local pressure and bipolar electrocautery. The wound was copiously irrigated with normal saline. The subcutaneous layer was closed with 4-0 Vicryl suture, and the skin edges were reapproximated with 5-0 nylon suture. The wound was infiltrated with some 0.25% plain Marcaine for postop pain control and sterile dressings were applied. The patient appears to have tolerated the procedure well and with no complications. All digits were well vascularized conclusion of the case.
--- NOTE | 2023-04-23 07:52 | MHC.SHP ---
Pre-Procedural Eval Section A - 24 Hr Update-Section A only Date of Service: 04/23/23 The patient is an INPATIENT: No Changes since office visit: Yes Cold of Flu in the past 2 weeks, Yes New Medical Problems, Yes Changes in Medication and Yes Patient answered all questions The patient has been examined within 24 hours of the surgical procedure. The History & Physical has been completed within 30 days and I have reviewed it.: No Section B - Complete if H&P > 30 days Chief Complaint: Lesion of ulnar nerve,carpar tunnel Allergies: Allergies Allergy/AdvReac Type Severity Reaction Status Date / Time oxycodone [From PERCOCET] AdvReac Mild Anxiety Verified 04/23/23 06:16 percocet AdvReac Mild Anxiety Uncoded 04/23/23 06:16 Review of Systems Review of Systems Comment: The patient pointed out that she has not had a left carpal tunnel release in the past, but has had a right carpal tunnel release in the past. Plan I have reviewed the history and physical and performed a pertinent physical examination on my patient. No changes have occurred unless specified. Plan is to proceed with a left primary carpal tunnel release and a left cubital tunnel release versus transposition. Time Spent With Patient Time: Total time managing care of this patient today ____ minutes.
== END 2023-04-23 12:47 | disposition home or self-care (01) ==
PROVIDERS: PCP Pediatrics; Visit Provider Orthopaedic Surgery
PROC: (CPT 64718; principal; 2023-04-23 07:30)
PROC: (CPT 64721; 2023-04-23 07:30)
DX: G56.02 Carpal tunnel syndrome, left upper limb (principal); Z98.890 Other specified postprocedural states; G56.22 Lesion of ulnar nerve, left upper limb; R20.0 Anesthesia of skin; E11.9 Type 2 diabetes mellitus without complications; I10 Essential (primary) hypertension; M79.7 Fibromyalgia; C85.90 Non-Hodgkin lymphoma, unspecified, unspecified site; Z79.84 Long term (current) use of oral hypoglycemic drugs; Z79.85 Long-term (current) use of injectable non-insulin antidiabetic drugs; Z79.899 Other long term (current) drug therapy; Z88.5 Allergy status to narcotic agent; F12.90 Cannabis use, unspecified, uncomplicated; Z87.891 Personal history of nicotine dependence
CPT/HCPCS: 64721; 64718; 82947; J0131; J0690; J1100; J1170; J2250; J2371; J2405; J2704; J2795; J3010

== ENCOUNTER → 2023-04-23 05:47 | Outpatient (BNV) | payer MEDICAID, SELFPAY | PROVIDERS: PCP Pediatrics; Visit Provider Orthopaedic Surgery | DX: G56.22 Lesion of ulnar nerve, left upper limb (principal); G56.02 Carpal tunnel syndrome, left upper limb | CPT/HCPCS: 64718; 64721 ==

== ENCOUNTER 2023-05-06 14:16 | Outpatient (AMB) | payer MEDICAID, SELFPAY ==
--- NOTE | 2023-05-06 14:18 | A.OFFVIS_ITS ---
Intake Intake Visit Reasons: PO-Lt Repeat CTR, Cub vs Trans 04/23/23 Intake Note: Neelam 58 yr old female presents today for her p/o visit for her left repeat CTR and cubital release from 04/23/[address] Nuñez. States numbness and tingling has improved. Sutures removed and steri strips applied. Allergies oxycodone [From PERCOCET] Adverse Reaction (Mild, Verified 05/06/23 14:21) Anxiety percocet Adverse Reaction (Mild, Uncoded 05/06/23 14:21) Anxiety HPI PO-Lt Repeat CTR, Cub vs Trans 04/23/23 HPI Details Neelam is a 58 year old right hand dominant Diabetic woman who returns S/P left repeat carpal tunnel release, and cubital tunnel release, DOS: 04/23/23 She says she is doing well and her sensation has been improving. She says her small finger feels normal, but she still has some numbness in the median nerve distribution. She is very happy with the results of her surgery. She has Fibromyalgia and is a homemaker. [facility] Medical History Non Hodgkin's lymphoma Fibromyalgia HTN (hypertension) Diabetes Surgical History History of surgery of head History of cholecystectomy History of hysterectomy History of carpal tunnel surgery Social History Alcohol intake: never Patient Tobacco Use Status: Former Tobacco user Quit Date: 2002 Tobacco use type: Cigarette Years Smoked: 10 Substance Use Type: Marijuana Current occupational status: disabled Current occupation: rt hand/ Review of Systems Const All systems reviewed & are unremarkable except as noted in HPI and below Physical Exam Const General: no acute distress and alert Orientation/consciousness: patient oriented x3 Neuro General: patient oriented x3 Extrem Other: The patient was alert oriented and in no acute distress The incision is healing well with no erythema drainage or evidence of infection. Sutures removed and Steri-Strips applied She can make a fist and extend all her digits Sensation is improved but not yet normal in the median nerve distribution. Sensation is normal in the ulnar nerve distribution Cap refill is brisk Nerve Conduction Study: Left side only IMPRESSION: 1. This is an abnormal study. 2. There is electrodiagnostic evidence for left moderate-severe median neuropathy at the wrist, consistent with carpal tunnel syndrome. 3. There is electrodiagnostic evidence for left ulnar neuropathy at the elbow. 4. There is no electrodiagnostic evidence for brachial plexopathy or cervical radiculopathy. Bonita Rodriguez MD, MARÍA 01/01/23 Psych Appearance: grossly normal Affect: normal affect Attitude: cooperative Assessment & Plan Assessment & Plan (1) Carpal tunnel syndrome of left wrist: Code(s): G56.02 - Carpal tunnel syndrome, left upper limb (2) Cubital tunnel syndrome on left: Code(s): G56.22 - Lesion of ulnar nerve, left upper limb (3) Diabetes: Code(s): E11.9 - Type 2 diabetes mellitus without complications (4) Fibromyalgia: Code(s): M79.7 - Fibromyalgia Plan Assessment & Plan: 1. Left Carpal tunnel syndrome,S/P repeat release DOS: 04/23/23 DOS: ~2011 at an outside clinic Pre-operatively with dense numbness Now with improving but not yet normal sensation 2. Left Cubital tunnel syndrome, S/P release DOS: 04/23/23 Pre-operatively with dense numbness Now with normal sensation The patient appears to be doing well post-operatively I educated her about the post-operative course I discussed activity modifications, she is to lift nothing heavier than a cellphone for the next two weeks She will perform gentle ROM exercises at home She should avoid any underwater activities for the next 5 days She should gently massage about the incision site to reduce the risk of hypersensitivity She can follow up prn Scribed for Cristina Nuñez MD by Jacoby Hendrickson, medical claims specialist, on 05/06/23 at 2:55 PM, EST. Coding Level of Care Code Global (03650) Diagnoses Carpal tunnel syndrome of left wrist G56.02 Cubital tunnel syndrome on left G56.22 Diabetes E11.9 Fibromyalgia M79.7
== END 2023-05-06 15:20 | disposition home or self-care (01) ==
PROVIDERS: PCP Pediatrics; Visit Provider Orthopaedic Surgery
DX: G56.02 Carpal tunnel syndrome, left upper limb (principal); G56.22 Lesion of ulnar nerve, left upper limb; E11.9 Type 2 diabetes mellitus without complications; M79.7 Fibromyalgia
CPT/HCPCS: 99024

== ENCOUNTER → 2023-05-06 14:16 | Outpatient (BNVA) | payer MEDICAID, SELFPAY | PROVIDERS: PCP Pediatrics; Visit Provider Orthopaedic Surgery | DX: Z48.811 Encounter for surgical aftercare following surgery on the nervous system (principal); E11.9 Type 2 diabetes mellitus without complications; M79.7 Fibromyalgia; Z86.69 Personal history of other diseases of the nervous system and sense organs; Z98.890 Other specified postprocedural states | CPT/HCPCS: 99212 ==

== ENCOUNTER 2023-06-19 15:06 | Outpatient (REF) | payer MEDICAID, SELFPAY | END 2023-06-19 15:07 | disposition home or self-care (01) | LOC: HO.MAMMO 15:06 | PROVIDERS: PCP Pediatrics; Visit Provider Pediatrics | DX: Z13.89 Encounter for screening for other disorder (principal) ==

== ENCOUNTER 2023-08-20 15:02 | Outpatient (REF) | payer MEDICAID, SELFPAY ==
--- NOTE | ~2023-08-20 | MM_ITS ---
EXAMINATION: MM SCREENING DIGITAL BREAST TOMOSYNTHESIS, BILATERAL CLINICAL INFORMATION: Screening. Asymptomatic. The patient is status post bilateral breast reduction. COMPARISON: Mammography: This study is compared with prior exams dating back to TECHNIQUE: Digital breast tomosynthesis is performed in both the craniocaudal and mediolateral oblique views along with computer-aided detection (CAD). Synthesized 2D images are generated from the tomosynthesis. FINDINGS: The breasts are almost entirely fatty (ACR BI-RADS breast composition Category a). There are no significant masses, abnormal calcifications, or other abnormalities. Post reduction changes are present. MM/MM tomosynthesis screening BI IMPRESSION: No mammographic evidence of malignancy. ASSESSMENT: BI-RADS BI-RADS 2 - Benign Findings RECOMMENDATION: Routine annual mammography screening. 1 year F/U This examination should not preclude the clinical evaluation of a suspicious palpable abnormality. This patient's information was entered into a reminder system with a target due date for their next mammogram.
== END 2023-08-20 15:03 | disposition home or self-care (01) ==
LOC: HO.MAMMO 15:02
PROVIDERS: PCP Pediatrics; Visit Provider Pediatrics
DX: Z12.31 Encounter for screening mammogram for malignant neoplasm of breast (principal)
CPT/HCPCS: 77063; 77067

== ENCOUNTER → 2023-08-20 15:15 | Outpatient (BNV) | payer MEDICAID, SELFPAY | PROVIDERS: PCP Pediatrics; Visit Provider Radiology Diagnostic Radiology | DX: Z12.31 Encounter for screening mammogram for malignant neoplasm of breast (principal) | CPT/HCPCS: 77063; 77067 ==

== ENCOUNTER 2023-08-29 00:24 | Emergency (ER) | payer MEDICAID, SELFPAY ==
--- NOTE | ~2023-08-29 | XR_ITS ---
EXAMINATION: XR SHOULDER, RIGHT CLINICAL INFORMATION: Pain COMPARISON: None available. TECHNIQUE: Three views of the right shoulder. FINDINGS: No acute fracture or malalignment. Bones are osteopenic. Small 3 mm focus of calcific tendinitis is present at the greater tuberosity at the supraspinatus tendon insertion. Minimal acromioclavicular and glenohumeral osteoarthritis. Imaged right chest wall is unremarkable. XR/XR shoulder RT min 2V IMPRESSION: 1. Small focus of calcific tendinitis at the supraspinatus tendon insertion. 2. Minimal acromioclavicular and glenohumeral osteoarthritis.
[2023-08-29 00:32] VITALS: BP 145/73; PULSE 70; RESP 16; TEMP 36.4; O2SAT 98; BMI 26.4
--- NOTE | 2023-08-29 00:39 | ECG_ITS ---
Test Reason : LEFT SHOULDER INJURY Blood Pressure : / mmHG Vent. Rate : 078 BPM Atrial Rate : 078 BPM P-R Int : 134 ms QRS Dur : 084 ms QT Int : 404 ms P-R-T Axes : 008 036 011 degrees QTc Int : 460 ms Normal sinus rhythm with sinus arrhythmia Normal ECG When compared with ECG of 27-AUG-2022 16:28, No significant change was found Referred By: Amy King Electronically Signed By:YULI MEJIAS MD
--- NOTE | 2023-08-29 01:22 | ED_ITS ---
HPI - Extremity Problem General Chief complaint: Extremity Injury, Upper Stated complaint: R shoulder pain x2 day Time Seen by Provider: 08/29/23 01:06 Source: patient Mode of arrival: ambulatory Limitations: no limitations History of Present Illness ED Provider: Dr. Azul Irving HPI Narrative: patient comes to the emergency room complaining of 2 days of right shoulder pain. Patient states that she can only abduct her arm up to 90 degrees. Afterwards she can possibly do it but it hurts too much to push with the pain. Patient denies any recent injuries. Patient denies chest pain back pain or shortness of breath. Related Data Home Medications ?Medication ?Instructions ?Recorded ?Confirmed cetirizine 10 mg tablet 10 mg PO QAM 12/10/22 04/23/23 dulaglutide 3 mg/0.5 mL 3 mg subcut DIRECTED 12/10/22 04/23/23 [facility] gabapentin 300 mg capsule 300 mg PO TID 12/10/22 04/23/23 glipizide 10 mg tablet, extended 10 mg PO DAILY 12/10/22 04/23/23 release 24 hr lisinopril 20 1 tab PO QAM 12/10/22 04/23/23 mg-hydrochlorothiazide 25 mg tablet zolpidem 5 mg tablet 5 mg PO BEDTIME PRN Sleep 12/10/22 04/23/23 Previous Rx's ?Medication ?Instructions ?Recorded ketorolac 10 mg tablet 10 mg PO . b.i.d. PRN pain #10 tabs 08/29/23 Allergies Allergy/AdvReac Type Severity Reaction Status Date / Time oxycodone [From PERCOCET] AdvReac Mild Anxiety Verified 08/29/23 00:34 percocet AdvReac Mild Anxiety Uncoded 05/06/23 14:21 Review of Systems Review of Systems: Constitutional : No Weight loss, No Fever, No Chills, No Night Sweats, No Fatigue, No Malaise ENT/Mouth : No Hearing loss, No Ear Pain, No Nasal Congestion, No Sinus Pain, No Hoarseness, No sore throat, No Rhinorrhea, No Swallowing Difficulty Eyes: No Eye Pain, No Swelling, No Redness, No Foreign Body, No Discharge, No Vision Changes Cardiovascular : No Chest Pain, No SOB, No Dyspnea on Exertion, No Orthopnea, No Edema, No Palpitations Respiratory : No Cough, No Sputum, No Wheezing, No Smoke Exposure, No Dyspnea Gastrointestinal : No Nausea, No Vomiting, No Diarrhea, No Constipation, No abdominal Pain, No Hematochezia, No Melena Genitourinary : no irregular bleeding, No Dysuria, No Urinary Frequency, No Hematuria, No Urinary Incontinence, No Urgency, No Flank Pain, No Urinary Flow Changes, No Hesitancy Musculoskeletal : Complaining of right shoulder pain, No Myalgias, No Joint Swelling Skin : No Skin Lesions, No rash Neuro : No Weakness, No Numbness, No Paresthesias, No Loss of Consciousness, No Dizziness, No Headache Psych : No Anxiety/Panic, No Depression, No SI/HI/AH/VH, No Social Issues, Heme/Lymph: No Bruising, No Bleeding,No Lymphadenopathy Endocrine : No Polyuria, No Polydipsia, No Temperature Intolerance [facility] Past Medical History Medical History Non Hodgkin's lymphoma Fibromyalgia HTN (hypertension) Diabetes Surgical History History of surgery of head History of cholecystectomy History of hysterectomy History of carpal tunnel surgery Social History Social History Alcohol intake: never Patient Tobacco Use Status: Former Tobacco user Tobacco use type: Cigarette Years Smoked: 10 Substance Use Type: Marijuana Advance Directives: No Advance Directives Information Provided: Yes Do you have a plan to hurt others: No Plan Current occupational status: disabled Current occupation: rt hand/ Physical Exam Vital Signs: Vital Signs: Last Vital Signs Temp 97.5 F 08/29/23 00:32 Pulse 70 08/29/23 00:32 Resp 16 08/29/23 00:32 BP 145/73 H 08/29/23 00:32 Pulse Ox 98 08/29/23 00:32 O2 Del Method Room Air 08/29/23 00:32 BMI result Body Mass Index 26.4 Const: Other: Appearance: Alert. Oriented X3. No acute distress. Eyes: Pupils equal, round and reactive to light. ENT: Pharynx normal. Neck: Normal inspection. Neck supple. No lymph nodes noted. No crepitus CVS: Normal heart rate and rhythm. Pulses normal. Normal S1 and S2 Respiratory: No respiratory distress. Breath sounds normal. No Wheezing. No rales Abdomen: Soft and nontender. No rigidity. No distention. Skin: Skin warm and dry. Normal skin color. Normal skin turgor. Extremities: No lower extremity edema. No Lacerations. No Rash. Patient is able to abduct the arm up to 90 degrees. Patient has pain to palpation over the lateral aspect of the right shoulder. Neuro: Oriented X 3. No motor deficit. No sensory deficit. Moving all extremities. No slurred speech. CN 2 through 12 grossly intact Psych: calm, cooperative, normal affect Medical Decision Making Medical Decision Making MDM Narrative: - My interpretation of x-ray of the right shoulder: normal alignment, no fracture or dislocation - per radiology report: Calcific tendinitis - patient was given IM ketorolac. - Discussed with the patient that she will likely need physical therapy, prescribed through her primary care physician patient agrees with plan - my interpretation of EKG, normal sinus rhythm, heart rate 78, no ST segment depression or elevation, nonspecific T-wave inversion in lead 3, QTC 460 Differential Diagnosis Differential Diagnoses: The differential diagnosis associated with the presentation includes ( contusion, dislocation, fracture, tendonitis, rotator cuff injury) Independent Interpretation I performed an independent interpretation of an: Plain X-Ray Radiology Impression Discussion of test interpretation with radiology: I have reviewed the radiologist's reading. Radiologist Impression: No acute fracture or malalignment. Bones are osteopenic. Small 3 mm focus of calcific tendinitis is present at the greater tuberosity at the supraspinatus tendon insertion. Minimal acromioclavicular and glenohumeral osteoarthritis. Imaged right chest wall is unremarkable. XR/XR shoulder RT min 2V IMPRESSION: 1. Small focus of calcific tendinitis at the supraspinatus tendon insertion. 2. Minimal acromioclavicular and glenohumeral osteoarthritis. Discharge Plan Discharge Clinical Impression: Calcific shoulder tendinitis Patient Disposition: Home, Self-Care Instructions: Calcific Tendinitis (ED) Additional Instructions: Please follow-up with your primary care physician tomorrow. it is likely that you may need physical therapy. If you have any worsening or new symptoms, please return to the emergency room or call 911 Prescriptions: New ketorolac 10 mg tablet 10 mg PO . b.i.d. PRN (Reason: pain) Qty: 10 0RF Rx Instructions: maximum total duration of 5 days from all oral, intranasal, or parenteral formulations No Action gabapentin 300 mg capsule 300 mg PO TID lisinopril-hydrochlorothiazide 20-25 mg tablet 1 tab PO QAM Trulicity 3 mg/0.5 mL pen injector 3 mg subcut DIRECTED zolpidem 5 mg tablet 5 mg PO BEDTIME PRN (Reason: Sleep) cetirizine 10 mg tablet 10 mg PO QAM glipizide 10 mg tablet extended release 24hr 10 mg PO DAILY Print Language: Tajik
[2023-08-29] MEDS: Ketorolac Tromethamine 60 MG/2 ML VIAL IM (01:38)
[2023-08-29 02:09] VITALS: BP 145/73; PULSE 70; RESP 16; TEMP 36.4; O2SAT 98
== END 2023-08-29 02:11 | disposition home or self-care (01) ==
PROVIDERS: Emergency Provider Emergency Medicine; PCP Pediatrics
DX: M75.31 Calcific tendinitis of right shoulder (principal); M25.511 Pain in right shoulder
CPT/HCPCS: 73030; 93005; 96372; 99283; 99284; J1885

== ENCOUNTER → 2023-08-29 00:39 | Outpatient (BNV) | payer MEDICAID, SELFPAY | PROVIDERS: Emergency Provider Emergency Medicine; PCP Pediatrics; Visit Provider Internal Medicine Cardiovascular Disease | DX: M25.511 Pain in right shoulder (principal) | CPT/HCPCS: 93010 ==

== ENCOUNTER 2023-11-13 21:10 | Emergency (ER) | payer MEDICAID, SELFPAY ==
--- NOTE | 2023-11-13 | ECG_ITS ---
Test Reason : htn Blood Pressure : / mmHG Vent. Rate : 058 BPM Atrial Rate : 058 BPM P-R Int : 178 ms QRS Dur : 086 ms QT Int : 446 ms P-R-T Axes : -07 024 014 degrees QTc Int : 437 ms Sinus bradycardia Otherwise normal ECG When compared with ECG of 29-AUG-2023 00:47, Heart rate has decreased Referred By: Generic ED Physician Electronically Signed By:DAVID BENAVIDES
--- NOTE | ~2023-11-13 | CT_ITS ---
EXAMINATION: CT HEAD WITHOUT CONTRAST CLINICAL INFORMATION: Posterior headache. Blurred vision. COMPARISON: Head CT June 24, 2010 TECHNIQUE: Contiguous axial imaging was performed from the skull base to vertex without intravenous administration of contrast. This CT examination was performed using dose optimization techniques as appropriate, variously including the following: *Automated exposure control *Adjustment of mA and/or kV according to patient size (this includes techniques or standardized protocols for targeted exams where dose is matched to indication/reason for exam; i.e. extremities or head) *Use of iterative reconstruction technique DLP: 617 mGy-cm FINDINGS: There is no evidence of acute intracranial hemorrhage or territorial infarction. No abnormal mass effect or midline shift is appreciated. Guillen-white differentiation is well preserved. No extra-axial fluid collections. The ventricular system and cortical sulci are normal in size. The osseous structures and soft tissues are normal. The visualized paranasal sinuses and mastoid air cells are well aerated. CT/CT head/brain wo IV con IMPRESSION: No CT evidence of acute intracranial abnormality. Electronically signed by: Abhilash Gil MD 11/14/2023 08:09 AM EDT
[2023-11-13 21:39] VITALS: BP 182/70; PULSE 65; RESP 20; TEMP 36.7; O2SAT 97; BMI 28.5
[2023-11-13 22:20] LABS: MANUAL DIFF FLAG NO
[2023-11-13 22:22] LABS: Basophils Absolute Auto 0.1 X10*3/uL (0.0-0.2); Basophils Percent Auto 0.7 % (0-2); Eosinophils Absolute Auto 0.2 X10*3/uL (0.0-0.4); Eosinophils Percent Auto 2.4 % (0-4); Hematocrit 38.7 % (37.0-47.0); Hemoglobin 12.9 g/dl (12.0-16.0); Imm Gran Abs Auto 0.01 X10*3/uL (0.00-0.03); Imm Gran Pct Auto 0.1 % (0.0-0.4); Lymphocytes Absolute Auto 2.8 X10*3/uL (1.2-4.9); Mean Corpuscular HGB Conc 33.3 g/dl (31.0-35.0); Mean Corpuscular Hemoglobin 23.9 pg (27.0-33.0); Mean Corpuscular Volume 71.8 fL (80.0-98.0); Monocytes Absolute Auto 0.4 X10*3/uL (0.1-1.2); Monocytes Percent Auto 6.5 % (2-11); Neutrophils Absolute Auto 3.3 x10*3/uL (2.0-8.3); Neutrophils Percent Auto 49.3 % (45-73); Platelet Count 171 X10*3/uL (160-400); Red Blood Count 5.39 X10*6/uL (4.20-5.50); Red Cell Distribution Width 14.9 % (11.0-16.0); White Blood Count 6.8 X10*3/uL (4.8-10.8)
[2023-11-13 22:43] LABS: Alanine Aminotransferase 21 U/L (0-31); Albumin Level 4.1 g/dL (3.5-5.0); Alkaline Phosphatase 100 U/L (39-117); Anion Gap 13 (12-20); Aspartate Amino Transferase 23 U/L (5-31); Bilirubin Total 0.5 mg/dL (0.0-1.0); Blood Urea Nitrogen 16 mg/dL (9-16); Calcium 10.3 mg/dL (8.4-10.2); Carbon Dioxide 26 mmol/L (22-29); Chloride 108 mmol/L (96-108); Estimated Glomerular Filt Rate > 60; Glucose Random 83 mg/dL (60-115); HCG Quantitative < 2 mIU/mL; Potassium 4.3 mmol/L (3.3-5.1); Sodium 143 mmol/L (135-145); Total Protein 7.2 g/dL (6.5-8.0)
[2023-11-13 22:52] LABS: COVID-19 Test Negative (Negative); IDNOW Serial# 6674DD1D
[2023-11-14] VITALS (7 sets, daily range): BP systolic 136–185; BP diastolic 66–87; PULSE 55–62; RESP 16; TEMP 36.6–36.8; O2SAT 95–99
--- NOTE | 2023-11-14 06:29 | ED_ITS ---
HPI - General Adult General Chief complaint: General Medical Stated complaint: high blood pressure Time Seen by Provider: 11/14/23 06:27 Source: patient Mode of arrival: ambulatory Limitations: no limitations History of Present Illness ED Provider: Clarice Yañez PA-C HPI narrative: 58-year-old female with a history of fibromyalgia, diabetes, hypertension on lisinopril and hydrochlorothiazide who presents to the ER for evaluation of a posterior headache that started last night. She also reported some transient vision changes with blurred vision in both of her eyes that has since resolved. She reports the headache is in the back of her head and throbbing in nature. It is constant, did not get any better with Tylenol. She denies any chest pain or shortness of breath. No abdominal pain, nausea, vomiting, diarrhea. No numbness or tingling. No weakness. She has been compliant with her blood pressure medications. She took her blood pressure at home and it was 200/90 so she came to the ER for evaluation. MD complaint: Posterior headache Onset (ago): hour(s) Location: head Radiation: non-radiation Severity: moderate Quality: other (Throbbing) Pain Consistency: constant Relieving factors: none Associated symptoms: denies other symptoms Treatments prior to arrival: none Related Data Home Medications ?Medication ?Instructions ?Recorded ?Confirmed cetirizine 10 mg tablet 10 mg PO QAM 12/10/22 04/23/23 dulaglutide 3 mg/0.5 mL 3 mg subcut DIRECTED 12/10/22 04/23/23 subcutaneous pen injector (Trulicity) gabapentin 300 mg capsule 300 mg PO TID 12/10/22 04/23/23 glipizide 10 mg tablet, extended 10 mg PO DAILY 12/10/22 04/23/23 release 24 hr lisinopril 20 1 tab PO QAM 12/10/22 04/23/23 mg-hydrochlorothiazide 25 mg tablet zolpidem 5 mg tablet 5 mg PO BEDTIME PRN Sleep 12/10/22 04/23/23 Previous Rx's ?Medication ?Instructions ?Recorded ketorolac 10 mg tablet 10 mg PO . b.i.d. PRN pain #10 tabs 08/29/23 Allergies Allergy/AdvReac Type Severity Reaction Status Date / Time oxycodone [From PERCOCET] AdvReac Mild Anxiety Verified 09/13/24 21:48 percocet AdvReac Mild Anxiety Uncoded 05/06/23 14:21 Review of Systems 2 Review of Systems: Yes all other systems are reviewed and are negative [facility] Past Medical History Medical History Non Hodgkin's lymphoma Fibromyalgia HTN (hypertension) Diabetes Surgical History History of surgery of head History of cholecystectomy History of hysterectomy History of carpal tunnel surgery Social History Social History Alcohol intake: never Patient Tobacco Use Status: Former Tobacco user Tobacco use type: Cigarette Years Smoked: 10 Smoked in Last 30 Days: No Use of substances other than those prescribed or required for medical reasons: No Substance Use Type: Marijuana Advance Directives: No Advance Directives Information Provided: Yes Patient : No Current occupational status: disabled Current occupation: rt hand/ Physical Exam ED Vital Signs: Vital Signs - 24 hr 11/13/23 21:39 11/14/23 02:09 11/14/23 04:40 Temperature 98.1 F 97.8 F Pulse Rate 65 58 60 Respiratory Rate 20 16 16 Blood Pressure 182/70 H 185/79 H 166/72 H Pulse Oximetry 97 99 95 Oxygen Delivery Method Room Air Room Air Room Air 11/14/23 06:00 11/14/23 06:47 11/14/23 06:47 Temperature Pulse Rate 62 Respiratory Rate 16 Blood Pressure 175/87 H 175/87 H 175/87 H Pulse Oximetry 95 Oxygen Delivery Method Room Air 11/14/23 07:41 11/14/23 08:08 11/14/23 08:42 Temperature 98.2 F 98.1 F Pulse Rate 55 60 60 Respiratory Rate 16 16 16 Blood Pressure 162/68 H 136/66 136/66 Pulse Oximetry 95 96 96 Oxygen Delivery Method Room Air Room Air Room Air BMI result Body Mass Index 28.5 Appearance: Alert. Oriented X3. No acute distress. Head: normocephalic, atraumatic. Eyes: Pupils equal, round and reactive to light. EOMI, no nystagmus ENT: Pharynx normal. No tonsillar swelling or exudate. Neck: Normal inspection. Neck supple. CVS: Normal heart rate and rhythm. Pulses normal. Respiratory: No respiratory distress. Breath sounds normal. Abdomen: Obese, Soft and nontender. +BS x4 Skin: Skin warm and dry. Normal skin color. Normal skin turgor. No rashes. Extremities: No lower extremity edema. No joint swelling. Neuro/psych: Oriented X 3. No motor deficit. No sensory deficit. CN II-XII intact. Normal speech and cognition. Normal deshny-in-mmoi, normal dnkq-yq-lybs. Steady gait. Medications Administered Discontinued Medications Generic Name Dose Route Start Last Admin Trade Name Mak PRN Reason Stop Dose Admin Acetaminophen 975 mg 11/14/23 06:41 11/14/23 06:46 Acetaminophen 325 Mg Tablet PO 11/14/23 06:42 975 mg ONCE ONE Administration Hydrochlorothiazide 25 mg 11/14/23 06:40 11/14/23 06:47 Hydrochlorothiazide 25 Mg Tablet PO 11/14/23 06:41 25 mg ONCE ONE Administration Protocol Lisinopril 20 mg 11/14/23 06:40 11/14/23 06:47 Lisinopril 20 Mg Tablet PO 11/14/23 06:41 20 mg ONCE ONE Administration Protocol Medical Decision Making Medical Decision Making MDM Narrative: 58-year-old female with history of hypertension, diabetes who presents to the ER for evaluation of a posterior headache and evaluated blood pressure. She also endorses transient blurred vision that has since resolved. It was both eyes and lasted a few moments. No other neuro symptoms. She states her vision is normal right now. Her blood pressure on arrival to the ER was 182/70. Lab work was performed which was unremarkable. She denied any chest pain. She had a persistent posterior headache. After 9 hours in the waiting room, patient was evaluated at the bedside. Her blood pressure as 175/87. She denied any vision changes in her neurologic exam was unremarkable. She was ordered for her home antihypertensives including 20 mg of lisinopril and 25 mg of hydrochlorothiazide Repeat blood pressure was 136/66 and her headache had resolved. CT scan of her head was performed that was negative for any acute bleed. She would like to go home. She is stable for DC with continuation of oral blood pressure medications, follow-up with her outpatient doctor and monitoring of BP at home. Stable for DC return precautions were discussed. Differential Diagnosis Differential Diagnoses: The differential diagnosis associated with the presentation includes Hypertensive urgency, hypertensive emergency, migraine headache, low clinical suspicion for subarachnoid hemorrhage or intracranial bleed Admission/Observation Consideration of admission/observation: Escalation of care including admission/observation considered Lab Data MDM Lab Attestation statement: I reviewed the patient's lab results. Normal renal function, stable H&H 11/13/23 22:05 11/13/23 22:05 Labs: Lab Results 11/13/23 Range/Units 22:05 WBC 6.8 (4.8-10.8) X10*3/uL RBC 5.39 (4.20-5.50) X10*6/uL Hgb 12.9 (12.0-16.0) g/dl Hct 38.7 (37.0-47.0) % MCV 71.8 L (80.0-98.0) fL MCH 23.9 L (27.0-33.0) pg MCHC 33.3 (31.0-35.0) g/dl RDW 14.9 (11.0-16.0) % Plt Count 171 D (160-400) X10*3/uL MPV 11.0 (9.4-12.3) fL Immature Gran % (Auto) 0.1 (0.0-0.4) % Neut % (Auto) 49.3 (45-73) % Lymph % (Auto) 41.0 H (20-40) % Franklin % (Auto) 6.5 (2-11) % Eos % (Auto) 2.4 (0-4) % Baso % (Auto) 0.7 (0-2) % Lymph # (Auto) 2.8 (1.2-4.9) X10*3/uL Franklin # (Auto) 0.4 (0.1-1.2) X10*3/uL Eos # (Auto) 0.2 (0.0-0.4) X10*3/uL Baso # (Auto) 0.1 (0.0-0.2) X10*3/uL Abs Immat Gran (auto) 0.01 (0.00-0.03) X10*3/uL Absolute Neuts (auto) 3.3 (2.0-8.3) x10*3/uL Absolute Nucleated RBC 0.000 (0.0-0.012) X10*3/uL Nucleated RBC % (auto) 0.0 (0.0-0.2) /100WBC Sodium 143 (135-145) mmol/L Potassium 4.3 (3.3-5.1) mmol/L Chloride 108 (96-108) mmol/L Carbon Dioxide 26 (22-29) mmol/L Anion Gap 13 (12-20) BUN 16 (9-16) mg/dL Creatinine 0.79 (0.5-1.4) mg/dL Estim Creat Clear Calc 78.0 Estimated GFR > 60 Random Glucose 83 (60-115) mg/dL Calcium 10.3 H (8.4-10.2) mg/dL Total Bilirubin 0.5 (0.0-1.0) mg/dL AST 23 (5-31) U/L ALT 21 (0-31) U/L Alkaline Phosphatase 100 (39-117) U/L Total Protein 7.2 (6.5-8.0) g/dL Albumin 4.1 (3.5-5.0) g/dL Beta HCG, Quant < 2 mIU/mL COVID-19 (JENNY) Negative (Negative) COVID-19 Clin Com See Note Independent Interpretation I performed an independent interpretation of an: EKG and CT Scan Interpretation: Sinus bradycardia, ventricular rate 58 beats per minute, normal MI interval, normal QTC, no ST segment elevations or depressions, no change from July CT head without any acute bleed or edema Radiology Impression Discussion of test interpretation with radiology: I have reviewed the radiologist's reading. Radiologist Impression: CT/CT head/brain wo IV con IMPRESSION: No CT evidence of acute intracranial abnormality. Independent Historian Clinical information obtained from an independent historian. History obtained from or confirmed by: Spouse External Record Review External record reviewed: Office record, Outpatient record, Prior outpatient labs and Prior outpatient radiology Prescription Management I considered prescription management with: Pain Medication and Other (Antihypertensive) Chronic Conditions Patient?s care impacted by: Diabetes and Hypertension Discharge Plan Discharge Clinical Impression: Hypertension, Headache Patient Disposition: Home, Self-Care Instructions: Acute Headache (DC), Hypertension (ED) Additional Instructions: Take your blood pressure medications as prescribed. Your workup today was unremarkable including a normal head CT. Follow-up with your doctor next week. If you develop new or worsening symptoms call 911 or come back to the ER for further evaluation. Prescriptions: No Action ketorolac 10 mg tablet 10 mg PO . b.i.d. PRN (Reason: pain) Qty: 10 0RF Rx Instructions: maximum total duration of 5 days from all oral, intranasal, or parenteral formulations gabapentin 300 mg capsule 300 mg PO TID lisinopril-hydrochlorothiazide 20-25 mg tablet 1 tab PO QAM Trulicity 3 mg/0.5 mL pen injector 3 mg subcut DIRECTED zolpidem 5 mg tablet 5 mg PO BEDTIME PRN (Reason: Sleep) cetirizine 10 mg tablet 10 mg PO QAM glipizide 10 mg tablet extended release 24hr 10 mg PO DAILY Interventions: ED Discharge Assessment Last Done: 11/14/23 08:42 Discharge Date/Time: 11/14/23 08:42 Print Language: Divehi
[2023-11-14] MEDS: Acetaminophen 325 MG TABLET 975 MG PO (06:46)
[2023-11-14] MEDS: hydroCHLOROthiazide 25 MG TABLET PO (06:47)
[2023-11-14] MEDS: lisinopriL 20 MG TABLET PO (06:47)
--- NOTE | 2023-11-14 07:20 | PC.NURSE ---
pt to CT at this time.
== END 2023-11-14 08:42 | disposition home or self-care (01) ==
PROVIDERS: Emergency Provider Emergency Medicine
DX: R51.9 Headache, unspecified (principal); I10 Essential (primary) hypertension; E11.9 Type 2 diabetes mellitus without complications; Z79.85 Long-term (current) use of injectable non-insulin antidiabetic drugs; Z87.891 Personal history of nicotine dependence
CPT/HCPCS: 36415; 70450; 80053; 84702; 85025; 87635; 93005; 99284; 99285

== ENCOUNTER 2023-12-25 13:11 | Outpatient (REF) | payer MEDICAID, SELFPAY ==
--- NOTE | ~2023-12-25 | XR_ITS ---
EXAMINATION: XR CHEST XR RIGHT RIBS CLINICAL INFORMATION: Right lower rib pain. COMPARISON: August 27, 2022 TECHNIQUE: 2 views of the chest were obtained. Right rib series. FINDINGS: The lungs are well expanded. No focal consolidation. No pleural effusion. Cardiac silhouette is within normal limits. No displaced right-sided rib fracture. Surgical clips fracture of the right upper quadrant. XR/XR ribs RT 2V IMPRESSION: No acute abnormality. Electronically signed by: Adebayo Jorge MD 01/25/2024 02:17 PM [facility] BENTLEY
--- NOTE | ~2023-12-25 | XR_ITS ---
EXAMINATION: XR CHEST XR RIGHT RIBS CLINICAL INFORMATION: Right lower rib pain. COMPARISON: August 27, 2022 TECHNIQUE: 2 views of the chest were obtained. Right rib series. FINDINGS: The lungs are well expanded. No focal consolidation. No pleural effusion. Cardiac silhouette is within normal limits. No displaced right-sided rib fracture. Surgical clips fracture of the right upper quadrant. XR/XR chest 2V IMPRESSION: No acute abnormality. Electronically signed by: Adebayo Jorge MD 01/25/2024 02:17 PM MALLY BENTLEY
== END 2023-12-25 13:12 | disposition home or self-care (01) ==
LOC: HO.XRAY 13:11
PROVIDERS: PCP Pediatrics; Visit Provider Pediatrics
DX: R07.81 Pleurodynia (principal)
CPT/HCPCS: 71046; 71100

== ENCOUNTER 2024-08-26 10:16 | Outpatient (REF) | payer MEDICAID, SELFPAY ==
--- OUTSIDE RECORDS SUMMARY | 2024-08-26 10:58 | XMS_ITS | Encounter Summary ---
Author Organization [employer] Address [address] [place] [address] [address] [place] [address] Care Team Providers Care Instructor Adjunct Surgical Technician Name Role Phone Keyona Chaudhari MD Primary Care Provider [phone] Ryland Haskins Unavailable Melissa Douglass RN Unavailable [phone] Reason for Visit * Reason Onset Date Comments Nurse Triage 10/30/2022 Referral 10/30/2022 Encounter Details Date Type Department Care Team ([facility] st Contact Info) Description 10/30/2022 Telephone [facility] CHC MED & PEDS [address], [place] [phone] Keyona Chaudhari MD [address], [place] [phone] Nurse Triage; Referral Social History Tobacco Use Types Packs/Day Years Used Date Smoking Tobacco: Former Cigarettes Q uit: 03/02/1996 Passive Smoke Exposure: Past Smokeless Tobacco: Never Depression Answer Date Recorded Patient Health Questionnaire-2 Score 0 02/07/2022 Comments Unknown Sex and Gender Information Value Date Recorded Sex Assigned at Female 12/30/2021 10:16 AM EDT Legal Sex Female 10:16 AM EDT Gender Identity Female 12/30/2021 10:16 AM EDT Sexual Orientation Choose not to disclose 2024 10:11 AM EDT documented as of this encounter Miscellaneous Notes * Telephone Encounter - Adriana Joao - 11/06/2022 2:30 PM EDT Phong David, I have reviewed the [facility] CHC list for patients with an A1C > 8, your patient has agreed to an apt with [facility]. If you agree please send a referral to [facility] and put Mahogany's name in the comments. Once sent, please reply to this message so I will know referral has been placed. Thank you, Adriana [facility] Staff * Telephone Encounter - Angeles Young RN - 10/30/2022 12:35 PM EDT Triage call with [email or web address] [facility] [place] [id number] Pt reports left hand and wrist pain. Pt had carpel tunnel surgery done on this hand many years ago and now the symptoms are coming back. Pt denies doing any typing/computer work . Pt reports the painstarted again about 5 months ago. Now Pt has numbness in thumb and pointer finger. Pt is able to move the hand well but, when holding something such as a cup the finger and thumb pain worsens and then numbness occurs. Pt was trying to use brace which was given for previous carpal tunnel but is unable to use it now. Pt does take motrin 800mg for some pain relief. Apt with Dr. Mandel 10/30/22 @ 245pm. Insurance is verified as active prior to booking. Protocol Used: Hand and Wrist Pain (Adult) Protocol-Based Disposition: See in Office or Video Visit Today Positive Triage Question: * Numbness (i.e., loss of sensation) of new-onset in hand or fingers (Exception: Slight tingling; numbness present > 2 weeks.) * All higher-acuity triage questions were negative Care Advice Discussed: * Reasons To Call Back - Moderate pain (e.g., interferes with normal activities) lasts more than 3 days - Mild pain lasts more than 7 days - Arm swelling occurs - Signs of infection occur (e.g., spreading redness, warmth, fever) - You become worse * Telephone Encounter - Tasneem Brizuela - 10/30/2022 11:29 AM EDT Symptom: Hand or Wrist Pain - Not From Injury Outcome: Schedule an appointment to be seen within 24 hours Reason: Caller denied all higher acuity questions The caller accepted this outcome documented in this encounter Plan of Treatment Upcoming Encounters Date Type Department Care Team ([facility] st Contact Info) Description 11/24/2024 1:30 PM EDT Procedure Visit [facility] MED & PEDS [address] [place] [address] Keyona Chaudhari MD [address] [place] [address] documented as of this encounter Visit Diagnoses Not on filedocumented in this encounter Care Teams Instructor Adjunct Surgical Technician Relationship Specialty Start Date End Date Keyona Chaudhari MD [address] [place] [address] PCP - General Family Medicine 04/17/21 Ryland Haskins Community Health Worker 09/15/23 Melissa Douglass RN [address] [place] [address] Professor Of Languages 09/15/23 12/24/23 documented as of this encounter
[2024-08-26 14:40] LABS: Alanine Aminotransferase 54 U/L (0-31); Albumin Level 4.6 g/dL (3.5-5.0); Alkaline Phosphatase 118 U/L (39-117); Anion Gap 12 (12-20); Aspartate Amino Transferase 39 U/L (5-31); Bilirubin Direct 0.1 mg/dL (0.0-0.5); Bilirubin Total 0.4 mg/dL (0.0-1.0); Blood Urea Nitrogen 13 mg/dL (9-16); Calcium 9.7 mg/dL (8.4-10.2); Carbon Dioxide 27 mmol/L (22-29); Chloride 105 mmol/L (96-108); Cholesterol 275 mg/dL (<200); Estimated Glomerular Filt Rate > 60; Glucose Fasting 160 mg/dL (60-99); HDL Cholesterol 42 mg/dL (>40); LDL Cholesterol Calculated 173 mg/dL (<100); Potassium 3.9 mmol/L (3.3-5.1); Sodium 140 mmol/L (135-145); Total Protein 7.9 g/dL (6.5-8.0); Triglycerides 301 mg/dL (<150)
[2024-08-26 14:55] LABS: TSH reflex Free T4 4.08 uIU/mL (0.32-4.0); Vitamin D 25-OH Total 27.1 ng/mL (>30)
[2024-08-26 15:02] LABS: Folate 10.3 ng/mL (> or = 4.0); Vitamin B12 347 pg/mL (200-900)
[2024-08-26 15:07] LABS: Creatinine Urine 90.67 mg/dL; Microalbum/Creatinine Ratio Ur 6.6 ug/mg cr (<30)
[2024-08-26 15:36] LABS: Free T4 (Free Thyroxine) 0.91 ng/dL (0.71-1.85)
== END 2024-08-26 10:17 | disposition home or self-care (01) ==
LOC: HO.CHCLDS 10:16
PROVIDERS: Visit Provider Pediatrics
DX: E11.9 Type 2 diabetes mellitus without complications (principal); Z79.4 Long term (current) use of insulin; C82.90 Follicular lymphoma, unspecified, unspecified site; M79.7 Fibromyalgia
CPT/HCPCS: 36415; 80048; 80061; 80076; 82043; 82306; 82570; 82607; 82746; 84439; 84443; 85025

== ENCOUNTER 2024-08-30 11:36 | Outpatient (REF) | payer MEDICAID, SELFPAY ==
--- OUTSIDE RECORDS SUMMARY | 2024-08-30 12:51 | XMS_ITS | Encounter Summary ---
Author Organization [employer] Address [address] [place] [address] [address] [place] [address] Care Team Providers Care Music Education Adjunct Professor Name Role Phone Keyona Chaudhari MD Primary Care Provider [phone] Ryland Haskins Unavailable Melissa Douglass RN Unavailable [phone] Reason for Visit * Reason Onset Date Comments Nurse Triage 10/30/2022 Referral 10/30/2022 Encounter Details Date Type Department Care Team ([facility] st Contact Info) Description 10/30/2022 Telephone [facility] CHC MED & PEDS [address] [place], [place] [phone] Keyona Chaudhari MD [address], [place] [phone] Nurse Triage; Referral Social History Tobacco Use [...] EDT Phong David, I have reviewed the [facility] CHC list for patients with [...] 10/30/2022 12:35 PM EDT Triage call with [employer] [place] [id number] Pt reports left hand and wrist pain. [...] Upcoming Encounters Date Type Department Care Team ([facility] st Contact Info) Description 11/24/2024 1:30 PM EDT Procedure Visit [facility] MED & PEDS [address] [place] [address] Keyona Chaudhari MD [address] [place] [address] documented as of this encounter Visit Diagnoses Not on filedocumented in this encounter Care Teams Music Education Adjunct Professor Relationship Specialty Start Date End Date Keyona Chaudhari MD [address] [place] [address] PCP - General Family Medicine 04/17/21 yRland Haskins Community Health Worker 09/15/23 Melissa Douglass RN [address] [place] [address] Hall Worker 09/15/23 12/24/23 documented as of this encounter
[2024-08-30 14:31] LABS: MANUAL DIFF FLAG NO
[2024-08-30 14:42] LABS: Hematocrit 42.4 % (37.0-47.0); Hemoglobin 13.7 g/dl (12.0-16.0); Imm Gran Abs Auto 0.01 X10*3/uL (0.00-0.03); Imm Gran Pct Auto 0.2 % (0.0-0.4); Lymphocytes Absolute Auto 2.9 X10*3/uL (1.2-4.9); Mean Corpuscular HGB Conc 32.3 g/dl (31.0-35.0); Mean Corpuscular Hemoglobin 23.4 pg (27.0-33.0); Mean Corpuscular Volume 72.4 fL (80.0-98.0); NRBC Abs Auto 0.000 X10*3/uL (0.0-0.012); NRBC Pct Auto 0.0 /100WBC (0.0-0.2); Platelet Count 159 X10*3/uL (160-400); Red Blood Count 5.86 X10*6/uL (4.20-5.50); White Blood Count 6.3 X10*3/uL (4.8-10.8)
== END 2024-08-30 11:37 | disposition home or self-care (01) ==
LOC: HO.CHCLDS 11:36
PROVIDERS: Visit Provider Pediatrics
DX: M79.7 Fibromyalgia (principal); C82.90 Follicular lymphoma, unspecified, unspecified site; E11.9 Type 2 diabetes mellitus without complications; Z79.4 Long term (current) use of insulin
CPT/HCPCS: 36415; 85025

== ENCOUNTER 2024-08-30 12:03 | Outpatient (REF) | payer MEDICAID, SELFPAY ==
--- NOTE | ~2024-08-30 | XR_ITS ---
CLINICAL HISTORY: chronic low back pain Three views of the lumbar spine. COMPARISON: None provided. FINDINGS: Five [id number] lumbar type vertebral bodies. Normal vertebral body alignment. Vertebral body heights are maintained. No evidence of acute vertebral body injury. Small marginal osteophytes throughout the lumbar spine. Vertebral disc space heights are preserved. Visualized portions of the bones of the pelvis appear intact. Atherosclerotic vascular calcifications. IMPRESSION: 1. No radiographic evidence of acute injury to the lumbar spine. 2. Mild degenerative changes of the lumbar spine. This document has been electronically signed by: Joe Lees MD on 08/31/2024 17:21:22
--- NOTE | ~2024-08-30 | XR_ITS ---
CLINICAL HISTORY: chronic mid back pain Three views of the thoracic spine. COMPARISON: None provided. FINDINGS: Normal vertebral body alignment. Vertebral body heights are maintained. Small marginal osteophytes along the lower thoracic spine. Disc space heights are preserved. Cholecystectomy clips. IMPRESSION: 1. No radiographic evidence of acute injury to the thoracic spine. Mild degenerative changes of the lower thoracic spine. This document has been electronically signed by: Joe Lees MD on 08/31/2024 17:22:14
== END 2024-08-30 12:04 | disposition home or self-care (01) ==
LOC: HO.XRAY 12:03
PROVIDERS: PCP Pediatrics; Visit Provider Pediatrics
DX: M54.6 Pain in thoracic spine (principal); G89.29 Other chronic pain; M54.50 Low back pain, unspecified
CPT/HCPCS: 72072; 72100

== ENCOUNTER → 2024-08-30 12:08 | Outpatient (BNV) | payer MEDICAID, SELFPAY | PROVIDERS: PCP Pediatrics; Visit Provider Radiology Diagnostic Radiology | DX: M51.360 Other intervertebral disc degeneration, lumbar region with discogenic back pain only (principal); M47.814 Spondylosis without myelopathy or radiculopathy, thoracic region | CPT/HCPCS: 72072; 72100 ==